=== PATIENT | male | born 1955 | race Caucasian/White ===

== ENCOUNTER 2016-10-08 14:30 | Outpatient (CLI) | payer MEDICAID | END 2016-10-08 14:31 | disposition home or self-care (01) | LOC: LAB.R 14:30 | PROVIDERS: ATTEND Nurse Practitioner Family | DX: S61.212A Laceration without foreign body of right middle finger without damage to nail, initial encounter (principal) | CPT/HCPCS: 87070; 87205 ==

== ENCOUNTER 2020-09-05 13:22 | Outpatient (CLI) | payer MEDICAID | END 2020-09-05 13:23 | disposition critical access hospital (66) | LOC: EMS 13:22 | DX: R10.9 Unspecified abdominal pain (principal) | CPT/HCPCS: A0425; A0427; A0999 ==

== ENCOUNTER 2020-09-05 14:04 | Emergency (ER) | payer MEDICAID ==
--- NOTE | 2020-09-05 14:22 | ED Physician Documentation ---
PD HPI ABD PAIN - Stated complaint Stated Complaint: ABD PX - Chief complaint Chief Complaint: Abd Pain - History obtained from History obtained from: Patient - Additional information Additional information: Previously healthy 64-year-old gentleman presents with about 4 days of abdominal pain. It has been especially bad at night, periumbilical and now left-sided. When it is particularly bad he cannot get comfortable. He has chronic diarrhea, but this is not changed recently. He has never had a colonoscopy. He has a history of schizophrenia and nurses notes suggest methamphetamine use as well. He does seem to have some fixed delusions. He states for many years people have been irradiating him and he wonders if this might be relevant to his abdominal pain. He does have a known umbilical hernia, no changes there. No history of abdominal surgeries. He declined pain medication on initial evaluation. Review of Systems Ten Systems: 10 systems reviewed and negative Constitutional: denies: Fever, Chills Ears: reports: Reviewed and negative Nose: reports: Reviewed and negative Throat: reports: Reviewed and negative Cardiac: reports: Reviewed and negative PD PAST MEDICAL HISTORY - Past Medical History Psych: Depression, Bipolar disorder - Past Surgical History Past Surgical History: No - Present Medications Home Medications: Ambulatory Orders Medication Instructions Recorded Confirmed HYDROcod/ACETAM 5/325 [Vicodin 1 - 2 ea PO Q6H PRN #15 tablet 10/10/12 5/325] Sulfamethoxazole/Trimethoprim 1 each PO BID #14 tablet 10/10/12 [Sulfamethoxazole-Tmp Ds Tablet] HYDROmorphone [Dilaudid] 1 - 2 tab PO Q4H PRN #30 tablet 09/05/20 - Allergies Allergies/Adverse Reactions: Allergies Allergy/AdvReac Type Severity Reaction Status Date / Time No Known Drug Allergies Allergy Verified 09/05/20 14:15 - Social History Does the pt smoke?: No Smoking Status: Never smoker Does the pt drink ETOH?: No Does the pt have substance abuse?: No - Immunizations Immunizations are current?: No Immunizations: TDAP >10years/unknown - POLST Patient has POLST: No PD ED PE NORMAL - Vitals Vital signs reviewed: Yes - General General: Alert and oriented X 3, No acute distress, Other (Slightly odd affect and some fixed delusions, in no distress though.) - HEENT HEENT: PERRL, EOMI - Neck Neck: Supple, no meningeal sign, No bony TTP - Cardiac Cardiac: RRR, No murmur - Respiratory Respiratory: No respiratory distress, Clear bilaterally - Abdomen Abdomen: Normal bowel sounds, Soft, Non tender, Other (Nontender easily reducible moderate sized umbilical hernia, otherwise no abdominal tenderness.) - Derm Derm: Normal color, Warm and dry, Other (Infected sebaceous cyst on back) - Extremities Extremities: No edema, No calf tenderness / cord - Neuro Neuro: Alert and oriented X 3, Normal speech Results - Vitals Vitals: Vital Signs - 24 hr 09/05/20 09/05/20 09/05/20 14:12 14:30 17:36 Temperature 36.0 C L 36.5 C Heart Rate 88 88 88 Respiratory 16 16 16 Rate Blood Pressure 129/85 H 139/92 H 128/88 H O2 Saturation 99 99 100 Oxygen O2 Source Room air - Labs Labs: Laboratory Tests 09/05/20 09/05/20 09/05/20 14:35 15:39 15:39 WBC 11.3 H RBC 3.96 L Hgb 10.9 L Hct 33.5 L MCV 84.6 MCH 27.5 MCHC 32.5 RDW 16.3 H Plt Count 341 MPV 10.1 Neut # (Auto) 9.2 H Lymph # (Auto) 1.1 L [place] # (Auto) 0.7 Eos # (Auto) 0.2 Baso # (Auto) 0.0 Absolute Nucleated RBC 0.00 Nucleated RBC % 0.0 Sodium 138 Potassium 4.1 Chloride 104 Carbon Dioxide 26 Anion Gap 8.0 BUN 18 Creatinine 1.0 Estimated GFR (MDRD) 75 L Glucose 104 H Calcium 8.6 Total Bilirubin 0.7 AST 18 ALT 19 Alkaline Phosphatase 90 Total Protein 6.6 L Albumin 3.5 Globulin 3.1 Albumin/Globulin Ratio 1.1 Lipase 22 Urine Color YELLOW Urine Clarity CLEAR Urine pH 5.5 Ur Specific [place] 1.025 Urine Protein NEGATIVE Urine Glucose (UA) NEGATIVE Urine Ketones NEGATIVE Urine Occult Blood SMALL H Urine Nitrite NEGATIVE Urine Bilirubin NEGATIVE Urine Urobilinogen 0.2 (NORMAL) Ur Leukocyte Esterase NEGATIVE Urine RBC 0-5 Urine WBC 0-3 Ur Squamous Epith Cells FEW Squamous Urine Bacteria Few Urine Casts 3-5 Fine Granular Urine Mucus Few Strands Ur Microscopic Review INDICATED Urine Culture Comments NOT INDICATED Urine Opiates Screen NEGATIVE Ur Oxycodone Screen NEGATIVE Urine Methadone Screen NEGATIVE Ur Propoxyphene Screen NEGATIVE Ur Barbiturates Screen NEGATIVE Ur Tricyclics Screen NEGATIVE Ur Phencyclidine Scrn NEGATIVE Ur Amphetamine Screen POSITIVE H U Methamphetamines Scrn POSITIVE H U Benzodiazepines Scrn NEGATIVE Urine Cocaine Screen NEGATIVE U Cannabinoids Screen NEGATIVE - Rads (name of study) L wrist/hand XR Radiology: EMP read contemporaneously (fracture of undetermined carpal) Procedures - Splint (location) L wrist Splint applied by: Physician Type of splint: Fiberglass, Short arm Other: Patient tolerated well, No complications, Neurovascular intact PD MEDICAL DECISION MAKING - ED course ED course: 64-year-old gentleman presents with 3 to 4 days of abdominal pain, pattern most consistent with renal colic but differential diagnosis is large and given his age and necessitate CT scanning. He declines pain medication on initial evaluation. 64-year-old gentleman presents with several days worth of acute and significant abdominal pain but has a very benign examination. CT demonstrates CT imaging interpreted contemporaneously by me is suggestive of a mesenteric carcinoid. The case was discussed by phone with our on-call surgeon, Dr. Evans who does not feel any specific urgent management is needed simply pain control and referral to oncology. Diagnoses: 1. Abdominal pain 2. Mesenteric carcinoid I am prescribing a short course of short-acting opioid pain medication for this patient. I have reviewed the patients LAPPER and no concerning findings were noted. I have discussed that the opioids are for short term therapy only, and will not be refilled from the ED. Departure - Departure Disposition: 01 Home, Self Care Condition: Good Record reviewed to determine appropriate education?: Yes Instructions: ED Tumor [facility] Follow-Up: Sherlyn Mendes MD [Provider Admit Priv/Credential] - Prescriptions: HYDROmorphone [Dilaudid] 1 - 2 tab PO Q4H PRN #30 tablet PRN Reason: Pain Comments: Diagnoses: 1. Abdominal pain 2. Mesenteric carcinoid You need to follow-up with the oncologist for further evaluation and treatment. Gino 1 is listed on this form. Call her office for an appointment, next available. Return for new or worsening symptoms. I am prescribing a short course of narcotic pain medication for you. These are potentially dangerous and addictive medications that should be used carefully. These medications may constipate you. Take an [id number] stool softener (docusate) twice daily with plenty of water while taking these medications. If you go 24 hours without a bowel movement, take zzdh-cum-cmjhcif miralax, per package instructions. Do not drink or drive while taking these medications. If you received narcotic or sedating medications while in the emergency department, do not drive for 24 hours. Store this medication in a safe, secure place and out of reach of children. It is a violation of federal law to give or sell this medication to another person or to use in a manner other than prescribed. The ED will not refill narcotic prescriptions, including prescriptions lost or stolen. To dispose of unwanted medications: 1. [facility] at [address] in [place] has a medication drop box. They accept prescription medications (in pill form) Saturday through Saturday 9:00 a.m. to 5:00 p.m. 2. The [facility] [employer] accepts prescription medications (in pill form only) for disposal year round. Call for more information. 3. Contact the [facility] for the next [facility] sponsored prescription drug collection event. , [phone], or [phone]; Note that many narcotic pain relievers also contain Tylenol/acetaminophen. Please ensure that your total dose of acetaminophen from all sources does not exceed 3 g (3000 mg) per day. Discharge Date/Time: 09/05/20 17:36
[2020-09-05 14:42] LABS: MUDS CUTOFF CONCENTRATIONS CUTOFF CONC BELOW:
[2020-09-05 14:46] LABS: BILIRUBIN,URINE NEGATIVE (NEGATIVE); GLUCOSE, URINE (UA) NEGATIVE (NEGATIVE); KETONES,URINE (UA) NEGATIVE (NEGATIVE); LEUKOCYTE ESTERASE, URINE NEGATIVE (NEGATIVE); NITRITE,URINE NEGATIVE (NEGATIVE); OCCULT BLOOD,URINE SMALL (NEGATIVE); PH,URINE 5.5 PH (5.0-7.5); PROTEIN,URINE NEGATIVE (NEGATIVE); UROBILINOGEN,URINE 0.2 (NORMAL) E.U./dL (NORMAL)
[2020-09-05] MEDS ORDERED: HYDROmorphone 1 MG/ML CARPUJECT IVP STA ×2 (14:49→16:50)
[2020-09-05 15:00] LABS: CLARITY,URINE CLEAR (CLEAR)
[2020-09-05 15:01] LABS: BACTERIA,URINE Few /HPF (None Seen); MUCUS,URINE Few Strands; RBC,URINE 0-5 /HPF (0-5); SQUAMOUS EPITHELIAL CELL,UR FEW Squamous (<= Few); WBC,URINE 0-3 /HPF (0-3)
[2020-09-05 15:02] LABS: CASTS, URINE 3-5 Fine Granular /LPF; COCAINE SCREEN URINE NEGATIVE (NEGATIVE); THC CANNABINOID SCREEN, URINE NEGATIVE (NEGATIVE)
[2020-09-05 15:03] LABS: AMPHETAMINE SCREEN,URINE POSITIVE (NEGATIVE); BARBITURATE SCREEN,UR NEGATIVE (NEGATIVE); BENZODIAZEPINES SCREEN, URINE NEGATIVE (NEGATIVE); METHADONE SCREEN, URINE NEGATIVE (NEGATIVE); METHAMPHETAMINES SCREEN, URINE POSITIVE (NEGATIVE); OPIATE SCREEN, URINE NEGATIVE (NEGATIVE); OXYCODONE SCREEN, URINE NEGATIVE (NEGATIVE); PROPOXYPHENE SCREEN, URINE NEGATIVE (NEGATIVE); TRICYCLIC ANTIDEPRESSANT,URINE NEGATIVE (NEGATIVE)
[2020-09-05 15:44] LABS: BASOPHILS % (AUTO) 0.4 %; EOSINOPHILS # (AUTO) 0.2 10^3/uL (0.0-0.7); EOSINOPHILS % (AUTO) 1.4 %; HCT - HEMATOCRIT 33.5 % (42.0-52.0); HGB - HEMOGLOBIN 10.9 g/dL (14.0-18.0); LYMPHOCYTES # (AUTO) 1.1 10^3/uL (1.5-3.5); MEAN CORPUSCULAR HEMOGLOBIN 27.5 pg (27.0-31.0); MEAN CORPUSCULAR HGB CONC 32.5 g/dL (32.0-36.0); MEAN CORPUSCULAR VOLUME 84.6 fL (80.0-94.0); MEAN PLATELET VOLUME 10.1 fL (7.4-11.4); MONOCYTES # (AUTO) 0.7 10^3/uL (0.0-1.0); MONOCYTES % (AUTO) 6.3 %; NEUTROPHILS # (AUTO) 9.2 10^3/uL (1.5-6.6); NEUTROPHILS % (AUTO) 81.5 %; PLT - PLATELET COUNT 341 10^3/uL (130-450); RED BLOOD COUNT 3.96 10^6/uL (4.70-6.10); RED CELL DISTRIBUTION WIDTH 16.3 % (12.0-15.0); WHITE BLOOD COUNT 11.3 x10^3/uL (4.8-10.8)
[2020-09-05 16:00] LABS: ALBUMIN 3.5 g/dL (3.2-5.5); ALBUMIN/GLOBULIN RATIO 1.1 (1.0-2.2); BILIRUBIN,TOTAL 0.7 mg/dL (0.2-1.0); CALCIUM 8.6 mg/dL (8.5-10.3); POTASSIUM 4.1 mmol/L (3.5-5.0); TOTAL PROTEIN 6.6 g/dL (6.7-8.2)
[2020-09-05] MEDS ORDERED: IOVERSOL 320 100 ML VIAL IVP ONE ×2 (16:21→16:48)
--- NOTE | 2020-09-05 17:00 | CT Report ---
PROCEDURE: Abdomen/Pelvis W INDICATIONS: IV only, abd pain CONTRAST: IV CONTRAST: Optiray 320 ml: 100 PO CONTRAST: *NO PO CONTRAST TECHNIQUE: After the administration of IV contrast, 5 mm thick sections acquired from the diaphragms to the symp hysis. 5 mm thick coronal and sagittal reformats were acquired. For radiation dose reduction, the f ollowing was used: automated exposure control, adjustment of mA and/or kV according to patient size. COMPARISON: None. FINDINGS: Image quality: Excellent. ABDOMEN: Lung bases: Lung bases are clear. Heart size is normal. Solid organs: Liver and spleen are normal in size and enhancement. Gallbladder wall does not appear thickened. Biliary system is non dilated. Pancreas enhances normally. No adrenal nodules. Kidn eys demonstrate normal size and enhancement, without hydronephrosis. Peritoneum and bowel: Within the right aspect of the mesentery, there is a spiculated mass with surr ounding desmoplastic reaction, with associated "drawing in" of the adjacent loops of small bowel. The mass itself measures up to 2.2 centimeters in greatest axial dimension and measures up to 3.4 cm crankshaft straightener niocaudal and demonstrates central calcification. Bowel loops demonstrate normal wall thickness and caliber. No free fluid or air. Nodes and vessels: No retroperitoneal or mesenteric adenopathy by size criteria. Aorta and inferior vena cava are normal in size. Miscellaneous: A mild fat-containing periumbilical hernia is seen. PELVIS: Genitourinary: Bladder wall thickness is normal. Miscellaneous: A fat-containing left inguinal hernia is seen. No enlarged inguinal or pelvic lymph n odes are seen. Bones: No suspicious bony lesions. No vertebral body compression fractures. Degenerative changes a re seen throughout, which are worst involving the L5-S1 level. IMPRESSION: These imaging findings are most compatible with a mesenteric carcinoid. Please correlate with laboratory values. Incidental note is made of: Fat-containing periumbilical hernia Fat-containing left inguinal hernia Focal L5-S1 degenerative change Reviewed by: Joesph Puckett MD on 09/05/2020 3:59 PM AKANNA Approved by: Joesph Puckett MD on 09/05/2020 3:59 PM AKDT Station ID: [id number]
[2020-09-05 17:37] VITALS: BP 128/88
--- NOTE | 2020-09-11 13:53 | ED Physician Documentation ---
ED Addendum - Addendum Addendum: 09/11/20 13:52 Took call from EMS, they are out at his house. There is no increase in abdominal pain but the patient had just run out of his Dilaudid and is worried that he will have an increase in abdominal pain. They wondered if we could simply refill the medication. Given the new diagnosis of cancer this seems not unreasonable. He does have follow-up this week with Dr. Keith. I electronically sent a refill for the same prescription, Dilaudid 2 to 4 mg every 4 hours as needed for pain #30 to [facility] in [place].
== END 2020-09-05 17:36 | disposition home or self-care (01) ==
LOC: EDUNIT# → EDBD → ED 14:04
DX: K52.9 Noninfective gastroenteritis and colitis, unspecified (principal); K42.9 Umbilical hernia without obstruction or gangrene; C7A.019 Malignant carcinoid tumor of the small intestine, unspecified portion
CPT/HCPCS: 36415; 74177; 80053; 80306; 81001; 83690; 85025; 96374; 96376; 99283; 99284; J1170; Q9967; 29125; 81003; 87086

== ENCOUNTER 2020-09-08 09:33 | Outpatient (CLI) | payer MEDICAID | END 2020-09-08 09:34 | disposition EMS.NT | LOC: EMS 09:33 | DX: Z03.89 Encounter for observation for other suspected diseases and conditions ruled out (principal) ==

== ENCOUNTER 2020-09-16 17:21 | Outpatient (CLI) | payer MEDICAID | END 2020-09-16 17:22 | disposition critical access hospital (66) | LOC: EMS 17:21 | DX: R10.9 Unspecified abdominal pain (principal); R07.89 Other chest pain | CPT/HCPCS: A0425; A0427 ==

== ENCOUNTER 2020-09-16 18:09 | Emergency (ER) | payer MEDICAID ==
[2020-09-16] MEDS ORDERED: HYOSCYAMINE SL 0.125 MG TABLET SL STA (18:35)
--- NOTE | 2020-09-16 18:38 | ED Physician Documentation ---
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 This is since resolved. He states he currently has no complaints and would like to go home. No vomiting. No diarrhea. No constipation. Saw his PCP this morning. No fever. No chills. Pain was generalized, cramping, nonradiating. He is awaiting referral to oncology for further care of his carcinoid tumor Review of Systems Ten Systems: 10 systems reviewed and negative Constitutional: denies: Fever, Chills Cardiac: denies: Chest pain / pressure Respiratory: denies: Cough GI: denies: Nausea, Vomiting, Diarrhea, Hematemesis, Bloody / black stool PD PAST MEDICAL HISTORY - Past Medical History Past Medical History: Yes Psych: Depression, Bipolar disorder - Past Surgical History Past Surgical History: No - Present Medications Home Medications: Ambulatory Orders Medication Instructions Recorded Confirmed HYDROcod/ACETAM 5/325 [Vicodin 1 - 2 ea PO Q6H PRN #15 tablet 10/10/12 09/16/20 5/325] Hyoscyamine Sulfate [Levsin-Sl] 0.125 mg SL Q6H PRN #30 tab 09/16/20 - Allergies Allergies/Adverse Reactions: Allergies Allergy/AdvReac Type Severity Reaction Status Date / Time No Known Drug Allergies Allergy Verified 09/16/20 18:19 - Social History Does the pt smoke?: No Smoking Status: Never smoker Does the pt drink ETOH?: No Does the pt have substance abuse?: No - Immunizations Immunizations are current?: No Immunizations: TDAP >10years/unknown - POLST Patient has POLST: No PD ED PE NORMAL - Vitals Vital signs reviewed: Yes - General General: Alert and oriented X 3, No acute distress, Well developed/nourished - HEENT HEENT: PERRL, Moist mucous membranes - Neck Neck: Supple, no meningeal sign - Cardiac Cardiac: RRR, Strong equal pulses - Respiratory Respiratory: No respiratory distress, Clear bilaterally - Abdomen Abdomen: Soft, Non tender, Non distended - Back Back: No CVA TTP, No spinal TTP - Derm Derm: Warm and dry - Extremities Extremities: No edema - Neuro Neuro: Alert and oriented X 3 - Psych Psych: Normal mood, Normal affect Results - Vitals Vitals: Vital Signs - 24 hr 09/16/20 09/16/20 18:13 18:58 Temperature 36.4 C L Heart Rate 87 83 Respiratory 16 16 Rate Blood Pressure 143/92 H 154/93 H O2 Saturation 93 98 Oxygen O2 Source Room air PD MEDICAL DECISION MAKING - ED course Complexity details: reviewed results, re-evaluated patient, considered differential, d/w patient ED course: Patient is asymptomatic here. He request to go home at this time. We will trial him on Levsin as well for abdominal cramping. We will have him follow-up with his doctor for further care. Patient declines any other work-up at this time. Patient counseled regarding signs and symptoms for which I believe and urgent re-evaluation would be necessary. Patient with good understanding of and agreement to plan and is comfortable going home at this time This document was made in part using voice recognition software. While efforts are made to proofread this document, sound alike and grammatical errors may occur. Departure - Departure Disposition: Home, Self Care Clinical Impression: Abdominal pain Qualifiers: Abdominal location: generalized Qualified Code(s): R10.84 - Generalized abdominal pain Carcinoid tumor Qualifiers: Carcinoid tumor malignancy status: unspecified whether malignant Carcinoid tumor location: unspecified site Qualified Code(s): D3A.00 - Benign carcinoid tumor of unspecified site Condition: Good Instructions: ED Abdominal Pain Unkn Cause Follow-Up: Vic Keith MD [Credentialed Staff Provider] - Within 1 week Prescriptions: Hyoscyamine Sulfate [Levsin-Sl] 0.125 mg SL Q6H PRN #30 tab PRN Reason: Abdominal Pain Comments: You can use the Levsin in addition to the Dilaudid. The Dilaudid will take about 30 to 45 minutes to take effect. Follow-up with your doctor for further care. Discharge Date/Time: 09/16/20 19:00
[2020-09-16 18:58] VITALS: BP 154/93
== END 2020-09-16 19:00 | disposition home or self-care (01) ==
LOC: EDUNIT# → ED 18:09
DX: D3A.00 Benign carcinoid tumor of unspecified site (principal); R10.84 Generalized abdominal pain
CPT/HCPCS: 99283; 99284; A9270

== ENCOUNTER 2020-09-24 13:41 | Outpatient (CLI) | payer MEDICAID | END 2020-09-24 13:42 | disposition home or self-care (01) | LOC: LAB.S 13:41 | PROVIDERS: ATTEND Internal Medicine | DX: D3A.00 Benign carcinoid tumor of unspecified site (principal) | CPT/HCPCS: 36415; 81599; 86316 ==

== ENCOUNTER 2020-09-29 09:45 | Outpatient (CLI) | payer MEDICAID | END 2020-09-29 23:59 | disposition home or self-care (01) | LOC: LAB.R 09:45 | PROVIDERS: ATTEND Internal Medicine | DX: D3A.00 Benign carcinoid tumor of unspecified site (principal) | CPT/HCPCS: 81599; 83497 ==

== ENCOUNTER 2021-01-24 19:15 | Outpatient (CLI) | payer MEDICARE, MEDICAID | END 2021-01-24 19:16 | disposition critical access hospital (66) | LOC: EMS 19:15 | DX: R10.9 Unspecified abdominal pain (principal); R19.7 Diarrhea, unspecified | CPT/HCPCS: A0425; A0429 ==

== ENCOUNTER 2021-01-24 20:24 | Emergency (ER) | payer MEDICARE, MEDICAID ==
--- NOTE | 2021-01-24 20:48 | ED Physician Documentation ---
PD HPI ABD PAIN - Stated complaint Stated Complaint: ABD PX - Chief complaint Chief Complaint: Abd Pain - History obtained from History obtained from: Patient - History of Present Illness Timing - onset: How many weeks ago (2) Timing - duration: Weeks (2) Timing - details: Intermittant Quality: Cramping, Aching, Pain Location: All over / everywhere, Periumbilical Radiation: No: Chest, Lower back, Left flank, Right flank Improved by: Laying still. No: Eating Worsened by: Moving. No: Eating, Breathing Associated symptoms: Nausea, Diarrhea (claims loose stool without watery for the past few years. No melena nor blood.), Other (The patient states he does feel the pain episodes are being caused by outside forces and unknown people eliciting or provoking the pain in him.). No: Fever, Vomiting, Constipation, Melena, Hematochezia Similar symptoms before: No diagnosis (He had similar episodes frequently around the summertime and was seen in the ER twice and called the ambulance several times for similar episodes. CT scan showed a carcinoid tumor. He has not had follow-up with his primary as his pains improved for several months until 2 weeks ago.) Recently seen: Not recently seen (seen in ER twice in September. Saw PMD in follow up then but did not follow through with Oncology referral as pains improved.) Review of Systems Constitutional: denies: Fever, Chills Nose: denies: Rhinorrhea / runny nose, Congestion Throat: denies: Sore throat Cardiac: denies: Chest pain / pressure Respiratory: denies: Dyspnea, Cough GI: reports: Abdominal Pain, Nausea, Diarrhea. denies: Vomiting, Constipation, Hematemesis, Bloody / black stool : denies: Dysuria, Frequency PD PAST MEDICAL HISTORY - Past Medical History Cardiovascular: None Respiratory: None Neuro: None Endocrine/Autoimmune: None GI: None : None HEENT: None Psych: Depression, Bipolar disorder Musculoskeletal: Osteoarthritis Derm: None - Past Surgical History Past Surgical History: No General: Other - Present Medications Home Medications: Ambulatory Orders Medication Instructions Recorded Confirmed HYDROcod/ACETAM 5/325 [Vicodin 1 - 2 ea PO Q6H PRN #15 tablet 10/10/12 09/16/20 5/325] Hyoscyamine Sulfate [Levsin-Sl] 0.125 mg SL Q6H PRN #30 tab 09/16/20 Hyoscyamine [Levsin] 0.125 mg SL Q6H PRN #20 tablet 01/24/21 Naproxen 250 mg PO BID 7 Days #30 tablet 01/24/21 - Allergies Allergies/Adverse Reactions: Allergies Allergy/AdvReac Type Severity Reaction Status Date / Time No Known Drug Allergies Allergy Verified 01/24/21 20:26 - Social History Does the pt smoke?: No Smoking Status: Never smoker Does the pt drink ETOH?: No Does the pt have substance abuse?: No - Immunizations Immunizations are current?: No Immunizations: TDAP >10years/unknown - POLST Patient has POLST: No PD ED PE NORMAL - Vitals Vital signs reviewed: Yes - General General: Alert and oriented X 3, No acute distress, Well developed/nourished - HEENT HEENT: Pharynx benign - Neck Neck: Supple, no meningeal sign, No adenopathy - Cardiac Cardiac: RRR (regular but tachycardic.), No murmur - Respiratory Respiratory: Clear bilaterally - Abdomen Abdomen: Normal bowel sounds, Soft, Non tender, Non distended, No organomegaly, Other (umbilical area is soft and not tender. ) - Back Back: No CVA TTP - Derm Derm: Normal color, Warm and dry - Extremities Extremities: No edema, No calf tenderness / cord - Neuro Neuro: Alert and oriented X 3, No motor deficit, Normal speech Results - Vitals Vitals: Vital Signs - 24 hr 01/24/21 01/24/21 01/24/21 20:27 20:29 20:57 Temperature 36.5 C Heart Rate 118 H 119 H 105 H Respiratory 18 14 12 Rate Blood Pressure 113/80 107/70 125/84 H O2 Saturation 96 98 97 Oxygen O2 Source Room air - Labs Labs: Laboratory Tests 01/24/21 01/24/21 01/24/21 20:56 20:56 20:56 WBC 12.7 H RBC 4.33 L Hgb 11.8 L Hct 36.2 L MCV 83.6 MCH 27.3 MCHC 32.6 RDW 15.6 H Plt Count 429 MPV 9.6 Neut # (Auto) 10.7 H Lymph # (Auto) 1.1 L [place] # (Auto) 0.7 Eos # (Auto) 0.1 Baso # (Auto) 0.1 Absolute Nucleated RBC 0.00 Nucleated RBC % 0.0 Sodium 137 Potassium 3.8 Chloride 101 Carbon Dioxide 25 Anion Gap 11.0 BUN 16 Creatinine 1.0 Estimated GFR (MDRD) 75 L Glucose 154 H Calcium 9.1 Total Bilirubin 0.3 AST 28 ALT 33 Alkaline Phosphatase 124 H Total Protein 6.9 Albumin 3.3 Globulin 3.6 Albumin/Globulin Ratio 0.9 L Lipase 26 TSH 3.61 PD MEDICAL DECISION MAKING - ED course Complexity details: re-evaluated patient (The patient change his mind and declined any lab testing or imaging at this time. He follow-up outpatient. He does state prior prescriptions for pain meds and Levsin were helpful back in September. I can represcribe those.), considered differential (He is symptom-free at the moment. Considerations could be intermittent obstruction of his hernia but it soft at the moment. His intestinal tumor may be having changes. Repeat CT scan and lab testing would be appropriate.), d/w patient ED course: The patient does describe intermittent abdominal pains that may be intestinal spasms. Other considerations could be intermittent incarceration of his hernia which is soft and not tender at the moment. He had a previous carcinoid tumor found on CT scan in September that has not had follow-up. He saw his PMD but did not follow-up with the oncology referrals and had declined repeat imaging. The pain resumed intermittently the last 2 weeks. I offered doing a repeat CT scan to look for interval change here today. Initially said yes but then changed his mind it would rather be discharged. He does state pain meds and the Levsin had helped in September. I told him I would prescribe him some naproxen and Levsin to try for the episodes. I asked that he pay attention during the episodes to feel as bellybutton area and see if there is tenderness or firmness in the area that might suggest incarceration of his hernia. There is a paranoid delusional overlay to his thought process as he does feel there is external forces in people that are causing the pain episodes intermittently in order to "punish him". He would not elaborate further on this. He is aware that this sounds strange any says so all right but he still has that feeling. I believe he still has an organic cause for his pains though. Departure - Departure Disposition: 01 Home, Self Care Clinical Impression: Abdominal pain Qualifiers: Abdominal location: generalized Qualified Code(s): R10.84 - Generalized abdominal pain Condition: Stable Record reviewed to determine appropriate education?: Yes Instructions: ED Abdominal Pain Unkn Cause Male Follow-Up: Vic Keith MD [Primary Care Provider] - Prescriptions: Hyoscyamine [Levsin] 0.125 mg SL Q6H PRN #20 tablet PRN Reason: Abdominal Pain Naproxen 250 mg PO BID 7 Days #30 tablet Comments: Stay well-hydrated. I would suggest some anti-inflammatory such as naproxen twice daily for the next 10 to 14 days presuming some inflammation related to the intestinal tumor. Take it with food. Frequent fluids and regular diet for hydration and nutrition. Add hyoscyamine every 6 hours if needed for the abdominal pain episodes as this may be intestinal spasms occurring. When you get a pain episode, make note of your bellybutton area and see if the hernia is present and firm or hard with consideration of intermittent incarceration of the hernia as a cause of the pain. You really should follow-up with your primary care and referral to oncology for further evaluation of the previously diagnosed intestinal tumor from September. Call for an appointment. Return to the ER as needed. I transmitted the prescriptions to [facility] in [place]. Discharge Date/Time: 01/24/21 21:22
[2021-01-24] MEDS: SODIUM CHLORIDE 0.9% 1,000 ML IV STA (20:54)
[2021-01-24] MEDS ORDERED: IOVERSOL 320 100 ML VIAL IVP ONE (20:57)
[2021-01-24 20:58] VITALS: BP 125/84
[2021-01-24 21:02] LABS: BASOPHILS # (AUTO) 0.1 10^3/uL (0.0-0.1); BASOPHILS % (AUTO) 0.4 %; EOSINOPHILS # (AUTO) 0.1 10^3/uL (0.0-0.7); EOSINOPHILS % (AUTO) 1.1 %; HCT - HEMATOCRIT 36.2 % (42.0-52.0); HGB - HEMOGLOBIN 11.8 g/dL (14.0-18.0); LYMPHOCYTES # (AUTO) 1.1 10^3/uL (1.5-3.5); LYMPHOCYTES % (AUTO) 8.6 %; MEAN CORPUSCULAR HEMOGLOBIN 27.3 pg (27.0-31.0); MEAN CORPUSCULAR HGB CONC 32.6 g/dL (32.0-36.0); MEAN CORPUSCULAR VOLUME 83.6 fL (80.0-94.0); MEAN PLATELET VOLUME 9.6 fL (7.4-11.4); MONOCYTES # (AUTO) 0.7 10^3/uL (0.0-1.0); MONOCYTES % (AUTO) 5.6 %; NEUTROPHILS # (AUTO) 10.7 10^3/uL (1.5-6.6); NEUTROPHILS % (AUTO) 83.8 %; PLT - PLATELET COUNT 429 10^3/uL (130-450); RED BLOOD COUNT 4.33 10^6/uL (4.70-6.10); RED CELL DISTRIBUTION WIDTH 15.6 % (12.0-15.0); WHITE BLOOD COUNT 12.7 x10^3/uL (4.8-10.8)
[2021-01-24 21:45] LABS: ALBUMIN 3.3 g/dL (3.2-5.5); ALBUMIN/GLOBULIN RATIO 0.9 (1.0-2.2); BILIRUBIN,TOTAL 0.3 mg/dL (0.2-1.0); CALCIUM 9.1 mg/dL (8.5-10.3); POTASSIUM 3.8 mmol/L (3.5-5.0); TOTAL PROTEIN 6.9 g/dL (6.7-8.2)
== END 2021-01-24 21:22 | disposition home or self-care (01) ==
LOC: ED 20:24
DX: K46.9 Unspecified abdominal hernia without obstruction or gangrene (principal); R10.84 Generalized abdominal pain
CPT/HCPCS: 36415; 80053; 83690; 84443; 85025; 99283

== ENCOUNTER 2021-03-20 20:28 | Emergency (ER) | payer MEDICARE, MEDICAID ==
[2021-03-20 23:11] VITALS: BP 111/79
--- NOTE | 2021-03-20 23:57 | ED Physician Documentation ---
PD HPI HEENT - Stated complaint Stated Complaint: LT NECK PX - Chief complaint Chief Complaint: Heent - History obtained from History obtained from: Patient - Additional information Additional information: The patient comes to the emergency department chief complaint of left neck mass and pain for the last 7 days. The patient states that the mass seems to have gone down a little in size, and denies any impingement on his airway or difficulty swallowing. No dizziness or neurologic symptoms. The patient is currently being seen by oncology for work-up for possible small intestinal cancer. He actually has an appointment for a PET scan next week for this very reason. He has seen his oncologist since the onset of the neck swelling/mass, but nothing was felt to be needed to be done at that point in time, other than to further evaluate for cancer with the PET scan. The patient denies any fevers or chills. No drainage from the mass. No other complaints at this time. Review of Systems Ten Systems: 10 systems reviewed and negative Constitutional: reports: Reviewed and negative Eyes: reports: Reviewed and negative Ears: reports: Reviewed and negative Nose: reports: Reviewed and negative Throat: reports: Reviewed and negative Cardiac: reports: Reviewed and negative Respiratory: reports: Reviewed and negative GI: reports: Reviewed and negative : reports: Reviewed and negative Skin: reports: Reviewed and negative Musculoskeletal: reports: Reviewed and negative Neurologic: reports: Other (Neck mass) Psychiatric: reports: Reviewed and negative Endocrine: reports: Reviewed and negative Immunocompromised: reports: Reviewed and negative PD PAST MEDICAL HISTORY - Past Medical History Cardiovascular: None Respiratory: None Neuro: None Endocrine/Autoimmune: None GI: None : None HEENT: None Psych: Depression, Bipolar disorder Musculoskeletal: Osteoarthritis Derm: None - Past Surgical History Past Surgical History: No General: Other - Present Medications Home Medications: Ambulatory Orders Medication Instructions Recorded Confirmed HYDROcod/ACETAM 5/325 [Vicodin 1 - 2 ea PO Q6H PRN #15 tablet 10/10/12 03/06/21 5/325] Hyoscyamine Sulfate [Levsin-Sl] 0.125 mg SL Q6H PRN #30 tab 09/16/20 03/06/21 Hyoscyamine [Levsin] 0.125 mg SL Q6H PRN #20 tablet 01/24/21 03/06/21 Naproxen 250 mg PO BID 7 Days #30 tablet 01/24/21 03/06/21 - Allergies Allergies/Adverse Reactions: Allergies Allergy/AdvReac Type Severity Reaction Status Date / Time No Known Drug Allergies Allergy Verified 03/20/21 20:41 - Social History Does the pt smoke?: No Smoking Status: Current every day smoker Does the pt drink ETOH?: No Does the pt have substance abuse?: No - Immunizations Immunizations are current?: No Immunizations: TDAP >10years/unknown - POLST Patient has POLST: No PD ED PE NORMAL - Vitals Vital signs reviewed: Yes - General General: Alert and oriented X 3, No acute distress, Well developed/nourished - HEENT HEENT: Atraumatic, PERRL, EOMI, Moist mucous membranes - Neck Neck: Supple, no meningeal sign, No bony TTP, Other (Large, at least 8 to 10 cm diameter mass protruding from the base of patient's left neck. Trachea is midline. Voice normal. No erythema or fluctuance. Mass is firm and of consistent palpable density throughout.) - Respiratory Respiratory: No respiratory distress - Derm Derm: Normal color, Warm and dry, No rash - Extremities Extremities: No deformity, No edema - Neuro Neuro: Alert and oriented X 3 - Psych Psych: Normal mood, Normal affect Results - Vitals Vitals: Vital Signs - 24 hr 03/20/21 03/20/21 03/20/21 20:33 20:41 23:09 Temperature 36.4 C L 36.5 C 36.5 C Heart Rate 127 H 127 H 115 H Respiratory 16 16 16 Rate Blood Pressure 124/80 124/80 111/79 O2 Saturation 97 97 97 Oxygen O2 Source Room air PD MEDICAL DECISION MAKING - ED course Complexity details: considered differential, d/w patient ED course: I discussed with the patient that his findings are very concerning for malignancy, based on the firm, immobile nature of the mass. I have discussed with the patient that we can certainly do a CT scan here this may lead to biopsy by the oncologist; however, the patient also may have the mass imaged as part of his PET scan next week, as there is unlikely any emergent or even urgent in tervention that will be done for the mass alone. I discussed with the patient that the mass does have the potential to grow larger and potentially, invade surrounding structures, such as the carotid artery. The mass could also cause impingement on the patient's airway which is also concerning. However, as none of that is occurring now, and the patient is in the midst of a larger cancer work-up with oncology, there is no emergent management to be done at this time. The patient would like to forego imaging in the emergency department and instead, wait until his PET scan next week. We have discussed the usual indications for return. Departure - Departure Disposition: 01 Home, Self Care Clinical Impression: Mass in neck Condition: Stable Comments: The swelling in your neck is concerning for cancer, based on the firmness and solid consistency of it. Given that you are already established with oncology and have a PET scan coming up, this is at this point the best test to sort this out for you. At this point in time, there is no emergent intervention to be done, as the mass is not impinging on your airway or esophagus, and has not eroded into your carotid artery. You can discuss with your oncologist whether a biopsy is in order or whether you need radiation, chemotherapy, or surgery to shrink the tumor down. For now, you should continue your plan to follow-up for your PET scan. Please seek medical attention immediately if you feel as though your airways being closed off. Discharge Date/Time: 03/20/21 23:59
== END 2021-03-20 23:59 | disposition home or self-care (01) ==
LOC: ED 20:28
DX: R22.1 Localized swelling, mass and lump, neck (principal); F17.200 Nicotine dependence, unspecified, uncomplicated
CPT/HCPCS: 99281; 99284

== ENCOUNTER 2021-04-03 16:02 | Outpatient (CLI) | payer MEDICARE, MEDICAID | END 2021-04-03 16:03 | disposition critical access hospital (66) | LOC: EMS 16:02 | DX: R10.9 Unspecified abdominal pain (principal) | CPT/HCPCS: A0425; A0427 ==

== ENCOUNTER 2021-04-03 16:42 | Emergency (ER) | payer MEDICARE, MEDICAID ==
--- NOTE | 2021-04-03 17:15 | ED Physician Documentation ---
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 His follow-up has been delayed by access issues and probably underlying mental health issues but now has established with an oncologist. He had a PET scan last week and results are unknown. He had a lot of abdominal pain over the weekend and presents requesting pain medication. Pain is not too bad right now but definitely still there. He also requests that we draw the labs that his oncologist had ordered as an outpatient, review of the chart shows that a CBC, CMP, and chromogranin A had been ordered. Review of Systems Ten Systems: 10 systems reviewed and negative Constitutional: denies: Fever, Chills Throat: reports: Reviewed and negative Cardiac: reports: Reviewed and negative Respiratory: reports: Reviewed and negative PD PAST MEDICAL HISTORY - Past Medical History Cardiovascular: None Respiratory: None Neuro: None Endocrine/Autoimmune: None GI: None : None HEENT: None Psych: Depression, Bipolar disorder Musculoskeletal: Osteoarthritis Derm: None - Past Surgical History Past Surgical History: No General: Other - Present Medications Home Medications: Ambulatory Orders Medication Instructions Recorded Confirmed HYDROcod/ACETAM 5/325 [Vicodin 1 - 2 ea PO Q6H PRN #15 tablet 10/10/12 03/06/21 5/325] Hyoscyamine Sulfate [Levsin-Sl] 0.125 mg SL Q6H PRN #30 tab 09/16/20 03/06/21 Hyoscyamine [Levsin] 0.125 mg SL Q6H PRN #20 tablet 01/24/21 03/06/21 Naproxen 250 mg PO BID 7 Days #30 tablet 01/24/21 03/06/21 HYDROmorphone [Dilaudid] 1 - 2 tab PO Q4H PRN #30 tablet 04/03/21 - Allergies Allergies/Adverse Reactions: Allergies Allergy/AdvReac Type Severity Reaction Status Date / Time No Known Drug Allergies Allergy Verified 03/20/21 20:41 - Social History Does the pt smoke?: No Smoking Status: Current every day smoker Does the pt drink ETOH?: No Does the pt have substance abuse?: No - Immunizations Immunizations are current?: No Immunizations: TDAP >10years/unknown - POLST Patient has POLST: No PD ED PE NORMAL - Vitals Vital signs reviewed: Yes - General General: Alert and oriented X 3, No acute distress - Abdomen Abdomen: Other (Mild upper abdominal tenderness without surgical signs, normal bowel sounds, soft) - Back Back: No CVA TTP, No spinal TTP - Derm Derm: Normal color, Warm and dry - Extremities Extremities: No edema, No calf tenderness / cord - Neuro Neuro: Alert and oriented X 3, Normal speech Results - Vitals Vitals: Vital Signs - 24 hr 04/03/21 04/03/21 16:48 16:51 Temperature 36.3 C L 36.3 C L Heart Rate 107 H 107 H Respiratory 19 19 Rate Blood Pressure 124/84 H 124/84 H O2 Saturation 96 96 Oxygen O2 Source Room air PD MEDICAL DECISION MAKING - ED course ED course: 65-year-old gentleman with known intra-abdominal malignancy, 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 Given that he is a cancer patient this is not unreasonable. I did go ahead and order the labs that his oncologist had ordered. Departure - Departure Disposition: Home, Self Care Clinical Impression: Abdominal pain Qualifiers: Abdominal location: generalized Qualified Code(s): R10.84 - Generalized abdominal pain Condition: Good Record reviewed to determine appropriate education?: Yes Instructions: ED Abdominal Pain Unkn Cause Male Prescriptions: HYDROmorphone [Dilaudid] 1 - 2 tab PO Q4H PRN #30 tablet PRN Reason: Pain Comments: As requested and for your convenience I ordered a CBC, CMP, and chromogranin A lab. Since these were ordered by me and not your oncologist please call the [facility] tomorrow to let them know that these were ordered so that they can route the results to your oncologist. Return for new or worsening symptoms. I sent your prescription electronically to [email or web address] in [place] I am prescribing a short course of narcotic pain medication for you. These are potentially dangerous and addictive medications that should be used carefully. These medications may constipate you. Take an ebqa-rtx-[id number] stool softener (docusate) twice daily with plenty of water while taking these medications. If you go 24 hours without a bowel movement, take [id number] miralax, per package instructions. Do not drink or drive while taking these medications. If you received narcotic or sedating medications while in the emergency department, do not drive for 24 hours. Store this medication in a safe, secure place and out of reach of children. It is a violation of federal law to give or sell this medication to another person or to use in a manner other than prescribed. The ED will not refill narcotic prescriptions, including prescriptions lost or stolen. To dispose of unwanted medications: 1. [facility] at [address] in [place] has a medication drop box. They accept prescription medications (in pill form) Saturday through Saturday 9:00 a.m. to 5:00 p.m. 2. The [facility] [employer] [facility] accepts prescription medications (in pill form only) for disposal year round. Call for more information. 3. Contact the [facility] for the next [facility] sponsored prescription drug collection event. , [phone], or [phone]; Note that many narcotic pain relievers also contain Tylenol/acetaminophen. Please ensure that your total dose of acetaminophen from all sources does not exceed 3 g (3000 mg) per day.
[2021-04-03 17:29] LABS: BASOPHILS % (AUTO) 0.2 %; EOSINOPHILS # (AUTO) 0.1 10^3/uL (0.0-0.7); EOSINOPHILS % (AUTO) 0.4 %; HCT - HEMATOCRIT 32.9 % (42.0-52.0); HGB - HEMOGLOBIN 10.6 g/dL (14.0-18.0); LYMPHOCYTES # (AUTO) 0.9 10^3/uL (1.5-3.5); LYMPHOCYTES % (AUTO) 5.2 %; MEAN CORPUSCULAR HEMOGLOBIN 26.5 pg (27.0-31.0); MEAN CORPUSCULAR HGB CONC 32.2 g/dL (32.0-36.0); MEAN CORPUSCULAR VOLUME 82.3 fL (80.0-94.0); MEAN PLATELET VOLUME 9.7 fL (7.4-11.4); MONOCYTES # (AUTO) 1.5 10^3/uL (0.0-1.0); MONOCYTES % (AUTO) 8.4 %; NEUTROPHILS # (AUTO) 14.7 10^3/uL (1.5-6.6); NEUTROPHILS % (AUTO) 85.3 %; PLT - PLATELET COUNT 524 10^3/uL (130-450); RED CELL DISTRIBUTION WIDTH 17.7 % (12.0-15.0); WHITE BLOOD COUNT 17.3 x10^3/uL (4.8-10.8)
[2021-04-03 17:41] LABS: ALBUMIN 3.3 g/dL (3.2-5.5); ALBUMIN/GLOBULIN RATIO 0.9 (1.0-2.2); BILIRUBIN,TOTAL 0.8 mg/dL (0.2-1.0); CALCIUM 8.7 mg/dL (8.5-10.3); POTASSIUM 3.6 mmol/L (3.5-5.0); TOTAL PROTEIN 6.9 g/dL (6.7-8.2)
[2021-04-03] MEDS: HYDROmorphone 2 MG TABLET PO STA (18:17)
[2021-04-03 18:23] VITALS: BP 124/71
== END 2021-04-03 19:15 | disposition home or self-care (01) ==
LOC: EDUNIT# → ED 16:42
DX: R10.84 Generalized abdominal pain (principal); F17.200 Nicotine dependence, unspecified, uncomplicated
CPT/HCPCS: 36415; 80053; 81599; 85025; 99283; A9270

== ENCOUNTER 2021-04-06 20:09 | Outpatient (CLI) | payer MEDICARE, MEDICAID | END 2021-04-06 20:10 | disposition critical access hospital (66) | LOC: EMS 20:09 | DX: R10.11 Right upper quadrant pain (principal); R07.9 Chest pain, unspecified; R50.9 Fever, unspecified; R19.7 Diarrhea, unspecified | CPT/HCPCS: A0425; A0427 ==

== ENCOUNTER 2021-04-06 20:52 | Emergency (ER) | payer MEDICARE, MEDICAID ==
[2021-04-06] MEDS ORDERED: SODIUM CHLORIDE 0.9% 500 ML IV STA (21:02)
[2021-04-06 21:15] LABS: BASOPHILS # (AUTO) 0.1 10^3/uL (0.0-0.1); BASOPHILS % (AUTO) 0.3 %; EOSINOPHILS % (AUTO) 0.1 %; HCT - HEMATOCRIT 32.7 % (42.0-52.0); HGB - HEMOGLOBIN 10.4 g/dL (14.0-18.0); LYMPHOCYTES # (AUTO) 0.6 10^3/uL (1.5-3.5); MEAN CORPUSCULAR HEMOGLOBIN 25.9 pg (27.0-31.0); MEAN CORPUSCULAR HGB CONC 31.8 g/dL (32.0-36.0); MEAN CORPUSCULAR VOLUME 81.3 fL (80.0-94.0); MEAN PLATELET VOLUME 9.7 fL (7.4-11.4); MONOCYTES # (AUTO) 1.5 10^3/uL (0.0-1.0); MONOCYTES % (AUTO) 9.9 %; NEUTROPHILS # (AUTO) 12.7 10^3/uL (1.5-6.6); NEUTROPHILS % (AUTO) 85.3 %; PLT - PLATELET COUNT 631 10^3/uL (130-450); RED BLOOD COUNT 4.02 10^6/uL (4.70-6.10); RED CELL DISTRIBUTION WIDTH 17.2 % (12.0-15.0); WHITE BLOOD COUNT 14.9 x10^3/uL (4.8-10.8)
[2021-04-06 21:31] LABS: ALBUMIN/GLOBULIN RATIO 0.8 (1.0-2.2); BILIRUBIN,TOTAL 0.9 mg/dL (0.2-1.0); CALCIUM 8.6 mg/dL (8.5-10.3); CREATININE 1.1 mg/dL (0.6-1.2); POTASSIUM 3.8 mmol/L (3.5-5.0)
[2021-04-06] MEDS ORDERED: HYDROmorphone 1 MG/ML CARPUJECT IVP STA ×2 (22:07→23:03)
[2021-04-06] MEDS ORDERED: IOVERSOL 320 100 ML VIAL IVP ONE (22:40)
[2021-04-06] MEDS ORDERED: KETOROLAC 15 MG/ML VIAL IVP STA (23:02)
--- NOTE | 2021-04-06 23:05 | ED Physician Documentation ---
History of Present Illness - Stated complaint Stated Complaint: ABD PX/DIARRHEA - Chief complaint Chief Complaint: Trauma Abd - History obtained from History obtained from: Patient - Additonal information Additional information: 65-year-old man with past medical history of bipolar, schizophrenia, remote history of methamphetamine abuse, recently diagnosed carcinoid tumor about 7 months ago, just established care with oncology, presents with epigastric pain radiating to the left flank for the past several days, intermittent, aching, severe, worse with pressing on it. Patient reports he had 2 loose stools today that were nonbloody. denies fever, urinary sx, nausea. Patient was seen 5 days ago for the same symptoms, provided with pain medication and went home but then the pain recurred. Review of Systems Ten Systems: 10 systems reviewed and negative Constitutional: denies: Fever, Chills Cardiac: denies: Chest pain / pressure Respiratory: denies: Dyspnea GI: reports: Abdominal Pain. denies: Nausea, Vomiting, Constipation, Bloody / black stool : denies: Dysuria, Frequency, Hematuria PD PAST MEDICAL HISTORY - Past Medical History Past Medical History: Yes Cardiovascular: None Respiratory: None Neuro: None Endocrine/Autoimmune: None GI: None : None HEENT: None Psych: Depression, Bipolar disorder Musculoskeletal: Osteoarthritis Derm: None Other Past Medical History: Recently DX w/ Colon CA. - Past Surgical History Past Surgical History: No General: Other - Present Medications Home Medications: Ambulatory Orders Medication Instructions Recorded Confirmed HYDROcod/ACETAM 5/325 [Vicodin 1 - 2 ea PO Q6H PRN #15 tablet 10/10/12 03/06/21 5/325] Hyoscyamine Sulfate [Levsin-Sl] 0.125 mg SL Q6H PRN #30 tab 09/16/20 03/06/21 Hyoscyamine [Levsin] 0.125 mg SL Q6H PRN #20 tablet 01/24/21 03/06/21 Naproxen 250 mg PO BID 7 Days #30 tablet 01/24/21 03/06/21 HYDROmorphone [Dilaudid] 1 - 2 tab PO Q4H PRN #30 tablet 04/03/21 oxyCODONE [Roxicodone] 10 mg PO Q4H PRN #90 tablet 04/05/21 - Allergies Allergies/Adverse Reactions: Allergies Allergy/AdvReac Type Severity Reaction Status Date / Time No Known Drug Allergies Allergy Verified 04/06/21 23:03 - Social History Does the pt smoke?: No Smoking Status: Never smoker Does the pt drink ETOH?: No Does the pt have substance abuse?: No - Immunizations Immunizations are current?: No Immunizations: TDAP >10years/unknown - POLST Patient has POLST: No PD ED PE NORMAL - Vitals Vital signs reviewed: Yes - General General: Alert and oriented X 3, Other (wasted appearance. appears older than stated age. patient in moderate distress, bent over around his abdomen) - HEENT HEENT: Atraumatic, PERRL, EOMI, Moist mucous membranes, Pharynx benign - Neck Neck: Supple, no meningeal sign - Cardiac Cardiac: RRR - Respiratory Respiratory: No respiratory distress, Clear bilaterally - Abdomen Abdomen: Other (diffuse discomfort to palpation worst in epigastrium) - Back Back: No CVA TTP - Derm Derm: Normal color, Warm and dry - Extremities Extremities: No deformity - Neuro Neuro: Alert and oriented X 3, No motor deficit, No sensory deficit - Psych Psych: Normal mood, Normal affect Results - Vitals Vitals: Vital Signs - 24 hr 04/06/21 04/06/21 20:57 23:02 Temperature 37.2 C Heart Rate 110 H 115 H Respiratory 28 H 16 Rate Blood Pressure 157/96 H 129/73 O2 Saturation 99 91 L Oxygen O2 Source Room air - Labs Labs: Laboratory Tests 04/06/21 04/06/21 21:12 21:12 WBC 14.9 H RBC 4.02 L Hgb 10.4 L Hct 32.7 L MCV 81.3 MCH 25.9 L MCHC 31.8 L RDW 17.2 H Plt Count 631 H MPV 9.7 Neut # (Auto) 12.7 H Lymph # (Auto) 0.6 L Shelby # (Auto) 1.5 H Eos # (Auto) 0.0 Baso # (Auto) 0.1 Absolute Nucleated RBC 0.00 Nucleated RBC % 0.0 Sodium 134 L Potassium 3.8 Chloride 94 L Carbon Dioxide 27 Anion Gap 13.0 BUN 20 Creatinine 1.1 Estimated GFR (MDRD) 67 L Glucose 154 H Calcium 8.6 Total Bilirubin 0.9 AST 11 ALT 16 Alkaline Phosphatase 116 Total Protein 7.0 Albumin 3.0 L Globulin 4.0 Albumin/Globulin Ratio 0.8 L Lipase 19 L PD MEDICAL DECISION MAKING - ED course ED course: Patient went to CT but then became agitated as dye was being injected and refused scan, stating he doesn't want to have it done. explained medical necessity but patient does have capacity to refuse. will treat symptoms only for now. Patient stating he feels much better after 2nd dose of dilaudid and a dose of toradol. requesting to go home to sleep. 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 return precautions given. plan to f/u with oncologist. Departure - Departure Disposition: Home, Self Care Clinical Impression: Abdominal pain, Carcinoid tumor Condition: Good Instructions: Abdominal Pain Comments: You were seen in the emergency department for evaluation of abdominal pain. I am glad you are feeling better! Please follow-up with your oncologist and return to the emergency department if you have any new or worsening symptoms or other concerns.
[2021-04-06 23:16] VITALS: BP 129/73
--- NOTE | 2021-04-12 15:46 | XRAY Report ---
PROCEDURE: Abdomen 1 View X-Ray INDICATIONS: diffuse abd pain since saturday. Changed to XR for billing. TECHNIQUE: Single scout leaser image is provided for evaluation. This was acquired as part of a CT exam whic h was aborted without further images. COMPARISON: CT abdomen pelvis 03/30/2021 FINDINGS: This is a limited exam with a single scout leaser image. There is mild prominence of bowel loops within the midabdomen. IMPRESSION: Markedly limited exam with mild prominence of bowel loops in the midabdomen suggestive o f ileus versus partial small bowel obstruction. Further complete imaging with abdominal series or CT is recommended. Reviewed by: Mague Loomis MD on 04/12/2021 3:44 PM PST Approved by: Mague Loomis MD on 04/12/2021 3:44 PM PST Station ID: [id number]
== END 2021-04-07 00:12 | disposition home or self-care (01) ==
LOC: EDUNIT# → ED 20:52
DX: R10.13 Epigastric pain (principal); C18.9 Malignant neoplasm of colon, unspecified
CPT/HCPCS: 36415; 74177; 80053; 83690; 85025; 96374; 96375; 99282; 99283; J1170

== ENCOUNTER 2021-04-12 10:45 | Outpatient (CLI) | payer MEDICARE, MEDICAID | END 2021-04-12 10:46 | disposition EMS.NT | LOC: EMS 10:45 | DX: R10.9 Unspecified abdominal pain (principal) ==

== ENCOUNTER 2021-04-12 18:15 | Outpatient (CLI) | payer MEDICARE, MEDICAID | END 2021-04-12 18:16 | disposition critical access hospital (66) | LOC: EMS 18:15 | DX: R41.82 Altered mental status, unspecified (principal) | CPT/HCPCS: A0425; A0427 ==

== ENCOUNTER 2021-04-12 18:57 | Inpatient (IN) | payer MEDICARE, MEDICAID ==
[2021-04-12] MEDS ORDERED: SODIUM CHLORIDE 0.9% 1,000 ML IV STA ×2 (19:03→20:09)
--- NOTE | 2021-04-12 19:07 | ED Physician Documentation ---
History of Present Illness - Stated complaint Stated Complaint: UNRESPONSIVE - Additonal information Additional information: 65-year-old male who has a known history of colon cancer is brought in by EMS for concerns of unresponsiveness. Per EMS this patient is a full code. He was recently transition from Dilaudid to oxycodone for pain. EMS has been out to his house number of times recently. His sister found him sitting up in a chair but unresponsive and 911 was called. On presentation for EMS they noted that he was very tachypneic with low oxygen saturations. They did give him 0.4 mg of Narcan which seemed to improve his mentation. However he remained tachypneic enroute here to the ER. unable to obtain sats enroute As he presents here the gentleman is very cold and clammy. He opens his eyes to painful stimuli only and will localize but does not follow commands he appears nonfocal. He was hypotensive for EMS and they did give him a full liter of fluid. A second liter is infusing at this time. 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 He herrera shave a hx of so secondary to the tumor mass. Followed by out MAC Dr Middleton. Pt transitioned off dilaudid yesterday and started on oxycodone. Sister reports Patient was screaming in pain at home. Symptoms did not improve until he started taking 3 tablets of oxycodone every 4 hours. Was after this that he was found unresponsive. Review of Systems Unable to obtain: Unresponsive, Other (EMS) PD PAST MEDICAL HISTORY - Past Medical History Cardiovascular: None Respiratory: None Neuro: None Endocrine/Autoimmune: None GI: None : None HEENT: None Psych: Depression, Bipolar disorder Musculoskeletal: Osteoarthritis Derm: None - Past Surgical History Past Surgical History: No General: Other - Present Medications Home Medications: Ambulatory Orders Medication Instructions Recorded Confirmed HYDROcod/ACETAM 5/325 [Vicodin 1 - 2 ea PO Q6H PRN #15 tablet 10/10/12 03/06/21 5/325] Hyoscyamine Sulfate [Levsin-Sl] 0.125 mg SL Q6H PRN #30 tab 09/16/20 03/06/21 Hyoscyamine [Levsin] 0.125 mg SL Q6H PRN #20 tablet 01/24/21 03/06/21 Naproxen 250 mg PO BID 7 Days #30 tablet 01/24/21 03/06/21 HYDROmorphone [Dilaudid] 1 - 2 tab PO Q4H PRN #30 tablet 04/03/21 oxyCODONE [Roxicodone] 10 mg PO Q4H PRN #90 tablet 04/05/21 - Allergies Allergies/Adverse Reactions: Allergies Allergy/AdvReac Type Severity Reaction Status Date / Time No Known Drug Allergies Allergy Verified 04/06/21 23:03 - Social History Does the pt smoke?: No Smoking Status: Never smoker Does the pt drink ETOH?: No Does the pt have substance abuse?: No - Immunizations Immunizations are current?: No Immunizations: TDAP >10years/unknown - POLST Patient has POLST: No PD ED PE EXPANDED - General General: Disheveled, poorly kept, Unresponsive, Other (appears very ill) - Cardiac Cardiac: Tachy, Pedal strong equal (1+ radial and DP bilaterally), Prolonged cap refill - Respiratory Respiratory: Other (tachypneic; otherwise clear) - Abdomen Abdomen: Decreased BS, Tender to palpation (significant tenderness to palpation in all quadrants) - Derm Derm: Pale - Extremities Extremities: Decreased/absent pulse, Cold foot, Pale foot. No: Deformity, Tenderness, Pedal edema bilateral - Neuro Neuro: Disoriented, CNII-XII intact - GCS Eye Opening: To Pain Motor: Localizes to Pain Verbal: Incomprehensible Total: 9 Results - Vitals Vitals: Vital Signs - 24 hr 04/12/21 04/12/21 04/12/21 19:10 19:30 20:00 Temperature 36.8 C Heart Rate 113 H 90 112 H Respiratory 30 H 40 H 36 H Rate Blood Pressure 74/59 L 84/33 L 96/70 O2 Saturation 100 100 04/12/21 04/12/21 04/12/21 20:14 21:00 21:30 Temperature Heart Rate 103 H 109 H 103 H Respiratory 22 27 H 35 H Rate Blood Pressure 96/70 83/68 L 107/87 H O2 Saturation 92 100 99 04/12/21 23:00 Temperature Heart Rate 97 Respiratory 40 H Rate Blood Pressure 88/60 L O2 Saturation 95 Oxygen O2 Source Mechanical ventilator - EKG (time done) 1920 Rate: Rate (enter#) (110) Rhythm: Sinus tachycardia [place]: Normal Intervals: Normal AL. No: Prolonged QT QRS: Normal Ischemia: Non specific changes Compare to prior EKG: Old EKG unavailable Computer interpretation: Agree with computer - Labs Labs: Laboratory Tests 04/12/21 04/12/21 04/12/21 19:27 19:27 19:27 WBC 33.0 H RBC 4.06 L Hgb 10.7 L Hct 34.3 L MCV 84.5 MCH 26.4 L MCHC 31.2 L RDW 17.9 H Plt Count 294 MPV 9.4 Neut # (Auto) Not Reportable Lymph # (Auto) Not Reportable Brooke # (Auto) Not Reportable Eos # (Auto) Not Reportable Baso # (Auto) Not Reportable Absolute Nucleated RBC Not Reportable Total Counted 100 Band Neuts % (Manual) 52 H Abnorm Lymph % (Manual) 2 Metamyelocytes % 11 H Nucleated RBC % Not Reportable Neutrophils # (Manual) 26.4 H Lymphocytes # (Manual) 2.6 Monocytes # (Manual) 0.3 Eosinophils # (Manual) 0.0 Basophils # (Manual) 0.0 Differential Comment MANUAL DIFFERENTIAL Platelet Estimate NORMAL (130-450,000) Platelet Morphology 1+ LARGE PLATELETS RBC Morph Micro Appear 1+ ACANTHOCYTES PT INR Bld Gas Analysis Time Sample Site ABG pH ABG pCO2 ABG pO2 ABG HCO3 ABG Total CO2 ABG O2 Saturation ABG Base Excess [place] Test Respiration Rate O2 Delivery Device Vent Mode FiO2 Tidal Volume PEEP Sodium 134 L Potassium 3.1 L Chloride 100 L Carbon Dioxide 13 L Anion Gap 21.0 H BUN 21 H Creatinine 2.2 H Estimated GFR (MDRD) 30 L Glucose 94 Lactic Acid > 10.0 H* Calcium 8.4 L Total Bilirubin 1.1 H AST 94 H ALT 60 Alkaline Phosphatase 100 Troponin I High Sens Total Protein 5.3 L Albumin 2.1 L Globulin 3.2 Albumin/Globulin Ratio 0.7 L Urine Color Urine Clarity Urine pH Ur Specific [place] Urine Protein Urine Glucose (UA) Urine Ketones Urine Occult Blood Urine Nitrite Urine Bilirubin Urine Urobilinogen Ur Leukocyte Esterase Urine RBC Urine WBC Ur Squamous Epith Cells Urine Bacteria Urine Casts Urine Mucus Urine Culture Comments Nasal Adenovirus (PCR) Nasal B. parapertussis DNA (PCR) Nasal Coronavir 229E PCR Nasal Coronavir HKU1 PCR Nasal Coronavir NL63 PCR Nasal Coronavir OC43 PCR Nasal Enterovir/Rhinovir PCR Nasal Influenza B PCR Nasal Influenza A PCR Nasal Parainfluen 1 PCR Nasal Parainfluen 2 PCR Nasal Parainfluen 3 PCR Nasal Parainfluen 4 PCR Nasal RSV (PCR) Nasal B.pertussis DNA PCR Nasal C.pneumoniae (PCR) Daniel Human Metapneumo PCR Nasal M.pneumoniae (PCR) Nasal SARS-CoV-2 (PCR) Urine Opiates Screen Ur Oxycodone Screen Urine Methadone Screen Ur Propoxyphene Screen Ur Barbiturates Screen Ur Tricyclics Screen Ur Phencyclidine Scrn Ur Amphetamine Screen U Methamphetamines Scrn U Benzodiazepines Scrn Urine Cocaine Screen U Cannabinoids Screen Blood Type Antibody Screen 04/12/21 04/12/21 04/12/21 19:27 19:27 19:27 WBC RBC Hgb Hct MCV MCH MCHC RDW Plt Count MPV Neut # (Auto) Lymph # (Auto) Brooke # (Auto) Eos # (Auto) Baso # (Auto) Absolute Nucleated RBC Total Counted Band Neuts % (Manual) Abnorm Lymph % (Manual) Metamyelocytes % Nucleated RBC % Neutrophils # (Manual) Lymphocytes # (Manual) Monocytes # (Manual) Eosinophils # (Manual) Basophils # (Manual) Differential Comment Platelet Estimate Platelet Morphology RBC Morph Micro Appear PT 15.7 H INR 1.4 H Bld Gas Analysis Time Sample Site ABG pH ABG pCO2 ABG pO2 ABG HCO3 ABG Total CO2 ABG O2 Saturation ABG Base Excess Juarez Test Respiration Rate O2 Delivery Device Vent Mode FiO2 Tidal Volume PEEP Sodium Potassium Chloride Carbon Dioxide Anion Gap BUN Creatinine Estimated GFR (MDRD) Glucose Lactic Acid Calcium Total Bilirubin AST ALT Alkaline Phosphatase Troponin I High Sens 17.8 Total Protein Albumin Globulin Albumin/Globulin Ratio Urine Color Urine Clarity Urine pH Ur Specific [place] Urine Protein Urine Glucose (UA) Urine Ketones Urine Occult Blood Urine Nitrite Urine Bilirubin Urine Urobilinogen Ur Leukocyte Esterase Urine RBC Urine WBC Ur Squamous Epith Cells Urine Bacteria Urine Casts Urine Mucus Urine Culture Comments Nasal Adenovirus (PCR) Nasal B. parapertussis DNA (PCR) Nasal Coronavir 229E PCR Nasal Coronavir HKU1 PCR Nasal Coronavir NL63 PCR Nasal Coronavir OC43 PCR Nasal Enterovir/Rhinovir PCR Nasal Influenza B PCR Nasal Influenza A PCR Nasal Parainfluen 1 PCR Nasal Parainfluen 2 PCR Nasal Parainfluen 3 PCR Nasal Parainfluen 4 PCR Nasal RSV (PCR) Nasal B.pertussis DNA PCR Nasal C.pneumoniae (PCR) Daniel Human Metapneumo PCR Nasal M.pneumoniae (PCR) Nasal SARS-CoV-2 (PCR) Urine Opiates Screen Ur Oxycodone Screen Urine Methadone Screen Ur Propoxyphene Screen Ur Barbiturates Screen Ur Tricyclics Screen Ur Phencyclidine Scrn Ur Amphetamine Screen U Methamphetamines Scrn U Benzodiazepines Scrn Urine Cocaine Screen U Cannabinoids Screen Blood Type O POSITIVE Antibody Screen NEGATIVE 04/12/21 04/12/21 04/12/21 19:42 21:03 21:08 WBC RBC Hgb Hct MCV MCH MCHC RDW Plt Count MPV Neut # (Auto) Lymph # (Auto) Brooke # (Auto) Eos # (Auto) Baso # (Auto) Absolute Nucleated RBC Total Counted Band Neuts % (Manual) Abnorm Lymph % (Manual) Metamyelocytes % Nucleated RBC % Neutrophils # (Manual) Lymphocytes # (Manual) Monocytes # (Manual) Eosinophils # (Manual) Basophils # (Manual) Differential Comment Platelet Estimate Platelet Morphology RBC Morph Micro Appear PT INR Bld Gas Analysis Time 2102 Sample Site LEFT RADIAL ABG pH 7.26 L ABG pCO2 23 L* ABG pO2 161 H* ABG HCO3 10.0 L ABG Total CO2 10.7 L* ABG O2 Saturation 98 ABG Base Excess -15.4 L Juarez Test POSITIVE Respiration Rate O2 Delivery Device NON REBREATHER MASK Vent Mode FiO2 15.00 Tidal Volume PEEP Sodium Potassium Chloride Carbon Dioxide Anion Gap BUN Creatinine Estimated GFR (MDRD) Glucose Lactic Acid Calcium Total Bilirubin AST ALT Alkaline Phosphatase Troponin I High Sens Total Protein Albumin Globulin Albumin/Globulin Ratio Urine Color YELLOW Urine Clarity SL. CLOUDY Urine pH 5.5 Ur Specific [place] >=1.030 H Urine Protein 30 H Urine Glucose (UA) NEGATIVE Urine Ketones NEGATIVE Urine Occult Blood SMALL H Urine Nitrite NEGATIVE Urine Bilirubin NEGATIVE Urine Urobilinogen 0.2 (NORMAL) Ur Leukocyte Esterase NEGATIVE Urine RBC 11-25 H Urine WBC 4-5 Ur Squamous Epith Cells FEW Squamous Urine Bacteria None Seen Urine Casts 6-10 Hyaline Casts Urine Mucus Marked Strands Urine Culture Comments NOT INDICATED Nasal Adenovirus (PCR) NOT DETECTED Nasal B. parapertussis DNA (PCR) NOT DETECTED Nasal Coronavir 229E PCR NOT DETECTED Nasal Coronavir HKU1 PCR NOT DETECTED Nasal Coronavir NL63 PCR NOT DETECTED Nasal Coronavir OC43 PCR NOT DETECTED Nasal Enterovir/Rhinovir PCR NOT DETECTED Nasal Influenza B PCR NOT DETECTED Nasal Influenza A PCR NOT DETECTED Nasal Parainfluen 1 PCR NOT DETECTED Nasal Parainfluen 2 PCR NOT DETECTED Nasal Parainfluen 3 PCR NOT DETECTED Nasal Parainfluen 4 PCR NOT DETECTED Nasal RSV (PCR) NOT DETECTED Nasal B.pertussis DNA PCR NOT DETECTED Nasal C.pneumoniae (PCR) NOT DETECTED Daniel Human Metapneumo PCR NOT DETECTED Nasal M.pneumoniae (PCR) NOT DETECTED Nasal SARS-CoV-2 (PCR) NOT DETECTED Urine Opiates Screen NEGATIVE Ur Oxycodone Screen POSITIVE H Urine Methadone Screen NEGATIVE Ur Propoxyphene Screen NEGATIVE Ur Barbiturates Screen NEGATIVE Ur Tricyclics Screen NEGATIVE Ur Phencyclidine Scrn NEGATIVE Ur Amphetamine Screen POSITIVE H U Methamphetamines Scrn POSITIVE H U Benzodiazepines Scrn NEGATIVE Urine Cocaine Screen NEGATIVE U Cannabinoids Screen NEGATIVE Blood Type Antibody Screen 04/12/21 04/12/21 04/12/21 23:01 23:01 23:14 WBC RBC Hgb Hct MCV MCH MCHC RDW Plt Count MPV Neut # (Auto) Lymph # (Auto) Brooke # (Auto) Eos # (Auto) Baso # (Auto) Absolute Nucleated RBC Total Counted Band Neuts % (Manual) Abnorm Lymph % (Manual) Metamyelocytes % Nucleated RBC % Neutrophils # (Manual) Lymphocytes # (Manual) Monocytes # (Manual) Eosinophils # (Manual) Basophils # (Manual) Differential Comment Platelet Estimate Platelet Morphology RBC Morph Micro Appear PT INR Bld Gas Analysis Time 2303 Sample Site RIGHT RADIAL ABG pH 7.17 L* ABG pCO2 31 L ABG pO2 84 ABG HCO3 11.1 L ABG Total CO2 12.1 L ABG O2 Saturation 92 L ABG Base Excess -16.2 L Juarez Test POSITIVE Respiration Rate 30 O2 Delivery Device VENTILATOR Vent Mode ASSIST/CONTROL FiO2 100.00 Tidal Volume 400 PEEP 5 Sodium 134 L Potassium 3.9 Chloride 105 Carbon Dioxide 15 L Anion Gap 14.0 H BUN 25 H Creatinine 2.2 H Estimated GFR (MDRD) 30 L Glucose 83 Lactic Acid 8.3 H* Calcium 7.5 L Total Bilirubin AST ALT Alkaline Phosphatase Troponin I High Sens Total Protein Albumin Globulin Albumin/Globulin Ratio Urine Color Urine Clarity Urine pH Ur Specific [place] Urine Protein Urine Glucose (UA) Urine Ketones Urine Occult Blood Urine Nitrite Urine Bilirubin Urine Urobilinogen Ur Leukocyte Esterase Urine RBC Urine WBC Ur Squamous Epith Cells Urine Bacteria Urine Casts Urine Mucus Urine Culture Comments Nasal Adenovirus (PCR) Nasal B. parapertussis DNA (PCR) Nasal Coronavir 229E PCR Nasal Coronavir HKU1 PCR Nasal Coronavir NL63 PCR Nasal Coronavir OC43 PCR Nasal Enterovir/Rhinovir PCR Nasal Influenza B PCR Nasal Influenza A PCR Nasal Parainfluen 1 PCR Nasal Parainfluen 2 PCR Nasal Parainfluen 3 PCR Nasal Parainfluen 4 PCR Nasal RSV (PCR) Nasal B.pertussis DNA PCR Nasal C.pneumoniae (PCR) Daniel Human Metapneumo PCR Nasal M.pneumoniae (PCR) Nasal SARS-CoV-2 (PCR) Urine Opiates Screen Ur Oxycodone Screen Urine Methadone Screen Ur Propoxyphene Screen Ur Barbiturates Screen Ur Tricyclics Screen Ur Phencyclidine Scrn Ur Amphetamine Screen U Methamphetamines Scrn U Benzodiazepines Scrn Urine Cocaine Screen U Cannabinoids Screen Blood Type Antibody Screen - Rads (name of study) CT abd Radiology: Final report received (central carcinoid tumor with sbo, perforation and free air) CT head Radiology: See rad report CT cervical spine Radiology: EMP read contemporaneously CT chest Radiology: See rad report PD MEDICAL DECISION MAKING - ED course Complexity details: reviewed results, re-evaluated patient, considered differential, d/w patient ED course: 65-year-old male who has a past medical history most significant for mental health disorder, history of meth use, colon cancer with significant metastasis as well as carcinoid syndrome presents to the ED via EMS after being found unresponsive at home. History is obtained from the sister who reports that for the last few days the patient has been screaming and writhing in pain. He was transitioned off of Dilaudid to oxycodone where he is reportedly taking 3 tablets every 4 hours. EMS found him hypotensive and tachypneic. Unable to obtain sats as pt's extremeties quite cold. He was given Narcan X2 but did not become more arousable. He was maintaining his airway. On presentation here to the emergency department he is localizing pain, remains tachypneic with saturations of 95%. However he is very cool and cold to the touch. Initial blood pressures are in the 70s over 30s. Writhing in pain Pt did present in significant septic shock. He is found to have marked leukocytosis and bandemia as well as a lactate greater than 10. Initially we ordered 2 L of fluid followed by a third bolus. With the initiation of IV fluids his blood pressure stool steadily kelly. However he continued to writhe about in pain. The decision was then made after consulting with his sister to intubate the patient for airway protection as well as to facilitate management of his care. Subsequent intubation and CVL placement were completed with the help of anesthesia Pt's sister was unaware of how advanced his cancer was. Pt's sister consented to intubation, but was at the time of my first conversation, unsure if pt would want CPR 2220: Patient has been intubated by anesthesia. His initial ABG showed marked acidemia. His ventilator settings were initially made to mimic his respiratory effort to avoid over-ventilating him. It was noted during the resuscitation that he had a large amount of coffee- ground and black vomitus in his airway. It is suspected that he aspirated. Given the concerns for sepsis as well as aspiration and possible small bowel obstruction patient was given 2 g of ampicillin. He was previously covered with cefepime and vancomycin. 2300: I have spoken on the phone with the patient's sister Miriam. We discussed the gravity of the patient's illness which includes severe septic shock and likely small bowel obstruction vs early perforation in the setting of metastatic cancer and carcinoid tumor. Though his blood pressure has improved he remains very acidotic. He is received a total of 4 L of fluid. The patient's sister feels that the patient would not want nor would he benefit from a CPR thus we will not initiate CPR but she states that initiation of pressors if necessary are okay. I spoke with nighttime hospitalist Dr. Avila who graciously agrees to accept and admit this patient to the ICU. She is aware that the results of the multiple CT scans are pending but that there is suspicion for sbo vs possible perforation. - Critical Care Time(min): 30 Time Includes: Direct patient care, Review records, Reassess patient, Document care, Coordinate care, Family consult for tx dec Data interpretation: Labs, ABG Procedures included in critical care time: Peripheral IV Departure - Departure Disposition: 66 [facility] DC/Xfer Clinical Impression: Sepsis associated hypotension, Shock, Small bowel obstruction Metastatic cancer Qualifiers: Area of secondary neoplastic involvement: unspecified site Qualified Code(s): C 79.9 - Secondary malignant neoplasm of unspecified site Discharge Date/Time: 04/12/21 23:45
[2021-04-12 19:39] LABS: BASOPHILS % (AUTO) 0.3 %; EOSINOPHILS % (AUTO) 0.1 %; HCT - HEMATOCRIT 34.3 % (42.0-52.0); HGB - HEMOGLOBIN 10.7 g/dL (14.0-18.0); LYMPHOCYTES % (AUTO) 3.2 %; MEAN CORPUSCULAR HEMOGLOBIN 26.4 pg (27.0-31.0); MEAN CORPUSCULAR HGB CONC 31.2 g/dL (32.0-36.0); MEAN CORPUSCULAR VOLUME 84.5 fL (80.0-94.0); MEAN PLATELET VOLUME 9.4 fL (7.4-11.4); MONOCYTES % (AUTO) 4.2 %; NEUTROPHILS % (AUTO) 87.6 %; PLT - PLATELET COUNT 294 10^3/uL (130-450); RED BLOOD COUNT 4.06 10^6/uL (4.70-6.10); RED CELL DISTRIBUTION WIDTH 17.9 % (12.0-15.0)
[2021-04-12 19:51] LABS: LACTIC ACID, VENOUS > 10.0 mmol/L (0.5-2.2)
[2021-04-12 19:52] LABS: MUDS CUTOFF CONCENTRATIONS CUTOFF CONC BELOW:
[2021-04-12 19:53] LABS: ALBUMIN 2.1 g/dL (3.2-5.5); ALBUMIN/GLOBULIN RATIO 0.7 (1.0-2.2); BILIRUBIN,TOTAL 1.1 mg/dL (0.2-1.0); CALCIUM 8.4 mg/dL (8.5-10.3); CREATININE 2.2 mg/dL (0.6-1.2); POTASSIUM 3.1 mmol/L (3.5-5.0); TOTAL PROTEIN 5.3 g/dL (6.7-8.2)
[2021-04-12 20:04] LABS: BILIRUBIN,URINE NEGATIVE (NEGATIVE); GLUCOSE, URINE (UA) NEGATIVE (NEGATIVE); KETONES,URINE (UA) NEGATIVE (NEGATIVE); LEUKOCYTE ESTERASE, URINE NEGATIVE (NEGATIVE); NITRITE,URINE NEGATIVE (NEGATIVE); OCCULT BLOOD,URINE SMALL (NEGATIVE); PH,URINE 5.5 PH (5.0-7.5); PROTEIN,URINE 30 mg/dL (NEGATIVE); UROBILINOGEN,URINE 0.2 (NORMAL) E.U./dL (NORMAL)
[2021-04-12] MEDS ORDERED: CEFEPIME 2 GM in SODIUM CHLORIDE 0.9% MINIBAG 100 ML IV STA (20:07)
[2021-04-12] MEDS ORDERED: NALOXONE 0.4 MG/ML VIAL IVP STA (20:17)
[2021-04-12 20:19] LABS: ABNORMAL LYMPHS % (MANUAL) 2 %; BAND NEUTROPHILS % (MANUAL) 52 %; LYMPHOCYTES # (MANUAL) 2.6 10^3/uL (1.5-3.5); LYMPHOCYTES % (MANUAL) 6 %; METAMYELOCYTES % (MANUAL) 11 %; MONOCYTES # (MANUAL) 0.3 10^3/uL (0.0-1.0); NEUTROPHILS # (MANUAL) 26.4 10^3/uL (1.5-6.6)
[2021-04-12 20:22] LABS: DIFFERENTIAL COMMENT MANUAL DIFFERENTIAL; PLATELET ESTIMATE, MANUAL NORMAL (130-450,000) (NORMAL)
[2021-04-12 20:24] LABS: AMPHETAMINE SCREEN,URINE POSITIVE (NEGATIVE); BARBITURATE SCREEN,UR NEGATIVE (NEGATIVE); BENZODIAZEPINES SCREEN, URINE NEGATIVE (NEGATIVE); COCAINE SCREEN URINE NEGATIVE (NEGATIVE); METHADONE SCREEN, URINE NEGATIVE (NEGATIVE); METHAMPHETAMINES SCREEN, URINE POSITIVE (NEGATIVE); OPIATE SCREEN, URINE NEGATIVE (NEGATIVE); OXYCODONE SCREEN, URINE POSITIVE (NEGATIVE); PROPOXYPHENE SCREEN, URINE NEGATIVE (NEGATIVE); THC CANNABINOID SCREEN, URINE NEGATIVE (NEGATIVE); TRICYCLIC ANTIDEPRESSANT,URINE NEGATIVE (NEGATIVE)
[2021-04-12 20:30] LABS: INR 1.4 (0.8-1.2); PT - PROTHROMBIN TIME 15.7 secs (9.9-12.6)
[2021-04-12 20:32] LABS: BACTERIA,URINE None Seen /HPF (None Seen); CASTS, URINE 6-10 Hyaline Casts /LPF; CLARITY,URINE SL. CLOUDY (CLEAR); MUCUS,URINE Marked Strands; SQUAMOUS EPITHELIAL CELL,UR FEW Squamous (<= Few)
--- NOTE | 2021-04-12 20:36 | XRAY Report ---
PROCEDURE: Chest 1 View X-Ray INDICATIONS: chest pain TECHNIQUE: One view of the chest was acquired. COMPARISON: None FINDINGS: Surgical changes and devices: None. Lungs and pleura: No pleural effusions or pneumothorax. Lungs are clear. Mediastinum: Mediastinal contours appear normal. Heart size is enlarged. Bones and chest wall: No suspicious bony lesions. Overlying soft tissues appear unremarkable. IMPRESSION: Cardiomegaly. No acute abnormality. Reviewed by: Js Chavez on 04/12/2021 8:35 PM [facility] Approved by: Js Chavez on 04/12/2021 8:35 PM [facility] Station ID: [id number]
[2021-04-12] MEDS ORDERED: VANCOMYCIN INJ 1 GM in SODIUM CHLORIDE 0.9% 500 ML IV STA (20:53)
[2021-04-12] MEDS ORDERED: VANCOMYCIN IV SCH (21:00)
[2021-04-12] MEDS ORDERED: SODIUM CHLORIDE 0.9% IV SCH (21:00)
[2021-04-12] MEDS ORDERED: VANCOMYCIN 1 GM VIAL ONE (21:04)
[2021-04-12 21:05] LABS: ABG BASE EXCESS -15.4 mmol/L (-2.0-3.0); ABG OXYGEN SATURATION 98 % (94-98); ABG PH 7.26 (7.35-7.45)
[2021-04-12 21:06] LABS: ALLEN TEST POSITIVE
[2021-04-12 21:07] LABS: ABG PCO2 23 mmHg (34-45); ABG PO2 161 mmHg (80-100); ABG TCO2 10.7 MMOL/L (21.0-29.0)
[2021-04-12] MEDS ORDERED: DEXAMETHASONE 10 MG/ML VIAL IVP STA (21:23)
[2021-04-12] MEDS ORDERED: IOVERSOL 320 100 ML VIAL IVP ONE ×2 (21:36→22:51)
[2021-04-12] MEDS ORDERED: MIDAZOLAM 2 MG/2 ML VIAL IVP STA (21:41)
[2021-04-12] MEDS ORDERED: MIDAZOLAM 2 MG/2 ML VIAL ONE (21:50)
[2021-04-12] MEDS ORDERED: MIDAZOLAM DRIP 50 MG/50 ML 50 MG/50 ML BAG IV SCH (22:00)
[2021-04-12] MEDS ORDERED: KETAMINE 500 MG/10 ML VIAL IVP STA (22:24)
--- NOTE | 2021-04-12 22:46 | ANESTHESIA PROCEDURE NOTE ---
Anesthesia Intubation Template - Intubation Blade: positive: Glidescope Tube: Size-enter number (8.0), Cuffed, Marked at teeth-enter cm (27cm) Route: Oral Placement Confirmation: End tidal CO2, Direct visualization, Bilateral breath sounds Complications: No complications
--- NOTE | 2021-04-12 22:47 | ANESTHESIA PROCEDURE NOTE ---
Anesth Central Line Template - Central Line Central Line Preparation: Unable to obtain consent Central line location: Right IJ Central line type: Triple lumen Central line catheter tip site resides: Atrium, right Central line aftercare: Chlorhexidine disc placed, Secured, Placement confirmed, No pneumothorax, No complications, Bundle checklist complete, Pt tolerated well
[2021-04-12 23:05] LABS: ABG BASE EXCESS -16.2 mmol/L (-2.0-3.0); ABG HCO3 11.1 mmol/L (22.0-26.0); ABG OXYGEN SATURATION 92 % (94-98); ABG PCO2 31 mmHg (34-45); ABG PO2 84 mmHg (80-100); ABG TCO2 12.1 MMOL/L (21.0-29.0); ALLEN TEST POSITIVE
--- NOTE | 2021-04-12 23:05 | CONSULTATION NOTE ---
Consultation Report: consulted by ED for emergent intubation. Unable to obtain verbal consent due to AMS, pt responsive only to painful stimuli. O2 sat 93-95% on 100%NRB, RR40's HOTN, tachycardic. All emergency equipment at the bedside. 2105 Pt sedated with Etomidate 35mg, Succinylcholine 120mg. 2106 Pt intubate with #8.0 ETT using Glidescope VL #4, Grade 1 view, secured 27cm @ teeth, +BBS, +CO2, cuff visualized through VC on VL. Copious amounts of black emesis noted in back of oralpharynx upon view with VL. Suctioned 200+cc of gastric contents prior to and during intubation. Notified provider of risk of aspiration. After airway secured, continued to suction large amounts of black gastric contents. OGT placed using Glidescope VL to watch as OGT was placed down esophagus into stomach. Afterwards a CVL was requested by Braden Nj APRN. Pt prepped and draped in sterile fashion. 7Fr 3-lumen CVL placed in R IJ under US guidance. Easy placement with no complications, VSS. Line sutured and sterile dressing applied. Upon initial port CXR, tip of CL appeared deep. CL pulled back approx 5 cm and resutured and new sterile dressing applied under sterile technique. Pt tolerated well, NAC. VS remain stable. New port CXR obtained at the bedside and tip of CVL in appropriate placement. Care resumed to ED.
[2021-04-12 23:09] LABS: ABG PH 7.17 (7.35-7.45)
[2021-04-12 23:10] LABS: ABG MODE OF VENTILATION ASSIST/CONTROL; ABG RESPIRATORY RATE 30 b/min
[2021-04-12] MEDS ORDERED: ONDANSETRON 4 MG/2 ML VIAL IVP PRN (23:16)
[2021-04-12] MEDS ORDERED: SODIUM CHLORIDE FLUSH 0.9% 10 ML SYRINGE IVP PRN (23:16)
[2021-04-12 23:18] LABS: B. PARAPERTUSSIS- RESP PCR PAN NOT DETECTED; B. PERTUSSIS- RESP PCR PANEL NOT DETECTED; C. PNEUMONIAE- RESP PCR PANEL NOT DETECTED; CORONAVIRUS 229E-RESP PCR NOT DETECTED; CORONAVIRUS HKU1-RESP PCR NOT DETECTED; CORONAVIRUS NL63-RESP PCR NOT DETECTED; CORONAVIRUS OC43-RESP PCR NOT DETECTED; HUMAN METAPNEUMOVIRUS NOT DETECTED; INFLUENZA A- RESP PCR PANEL NOT DETECTED; INFLUENZA B - RESP PCR PANEL NOT DETECTED; M. PNEUMONIAE- RESP PCR PANEL NOT DETECTED; PARAINFLUENZA VIRUS 1 NOT DETECTED; PARAINFLUENZA VIRUS 2 NOT DETECTED; PARAINFLUENZA VIRUS 3 NOT DETECTED; PARAINFLUENZA VIRUS 4 NOT DETECTED; RHINOVIRUS/ENTEROVIRUS NOT DETECTED; RSV- RESP PCR PANEL NOT DETECTED; SARS-CoV-2 -RESP PCR PANEL NOT DETECTED
[2021-04-12 23:26] LABS: CALCIUM 7.5 mg/dL (8.5-10.3); CREATININE 2.2 mg/dL (0.6-1.2); POTASSIUM 3.9 mmol/L (3.5-5.0)
[2021-04-12 23:29] LABS: LACTIC ACID, VENOUS 8.3 mmol/L (0.5-2.2)
--- NOTE | 2021-04-12 23:29 | HISTORY & PHYSICAL EXAMINATION ---
Chief Complaint - Chief Complaint Chief Complaint: Unresponsive, brought in by EMS History of Present Illness - Admitted From Admitted From:: ED - History Obtained From History obtained from: ED provider and chart review - History of Present Illness HPI Comment/Other: This is a 65-year-old white male who is single, and lives with his sister. 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 He is followed in the [facility] [place] clinic by Dr. Palomino who just saw him on 04/10/2019 with plan for starting Lanreotide chemo monthly and needing IR evaluation of a neck mass. The patient also has had recurrent small bowel obstruction due to the small bowel primary tumor and he has been referred for outpatient surgical evaluation. He has carcinoid syndrome with elevated urine 5HIAA and recurrent diarrhea. He has chronic anemia, likely due to recurrent bleed and iron deficiency. He has undiagnosed psych problems, as he hears and sees "special agents or forces shining radiowaves on him causing abdominal pain and cancer", per Dr Palomino's note. He had been managing abdominal pain with Dilaudid, which was transitioned to oxycodone yesterday. Sister reported the patient was screaming in pain at home. His symptoms did not improve until he started taking 3 tablets of oxycodone every 4 hours. His sister found him sitting up in a chair but was unresponsive and 911 was called. At the scene, EMS noted that he was very tachypneic with low oxygen saturations and BP was 40 palp. They did give him 0.4 mg of Narcan which seemed to improve his mentation slightly. They were unable to obtain sats enroute, gave a liter of fluid and he presented to the ER cold and clammy with BP 70. He opened his eyes to painful stimuli only and did not follow commands. He was writhing in pain from the abdomen. He received more Narcan, iv fluids, and empiric iv Vanco and Cefepime and the sister was called to discuss management; he was then intubated and sent to CT for scanning. CT results are pending. He is COVID neg, his L.A. is >10, WBC 33 with 52% Bands. He is being admitted to the ICU in critical condition. Just prior to leaving the ER, the Radiologist called with critical lab results: He has a hyperdense mass in the right frontal lobe which could be infarct or a metastatic mass. He has small bowel obstruction with infarcted bowel and free air and free fluid in the peritoneum. History - Past Medical History Cardiovascular: reports: None Respiratory: reports: None Neuro: reports: None Endocrine/Autoimmune: reports: None GI: reports: None : reports: None HEENT: reports: None Psych: reports: Depression, Bipolar disorder Musculoskeletal: reports: Osteoarthritis Derm: reports: None MRSA Hx?: Yes - Past Surgical History General: reports: Other - Family & Social History Living arrangement: At home Living Situation: With family - Substance History Use: Uses substance without health or social issues: Alcohol, Amphetamine - POLST Patient has POLST: No Meds/Allgy - Home Medications Home Medications: Ambulatory Orders Medication Instructions Recorded Confirmed HYDROcod/ACETAM 5/325 [Vicodin 1 - 2 ea PO Q6H PRN #15 tablet 10/10/12 03/06/21 5/325] Hyoscyamine Sulfate [Levsin-Sl] 0.125 mg SL Q6H PRN #30 tab 09/16/20 03/06/21 Hyoscyamine [Levsin] 0.125 mg SL Q6H PRN #20 tablet 01/24/21 03/06/21 Naproxen 250 mg PO BID 7 Days #30 tablet 01/24/21 03/06/21 HYDROmorphone [Dilaudid] 1 - 2 tab PO Q4H PRN #30 tablet 04/03/21 oxyCODONE [Roxicodone] 10 mg PO Q4H PRN #90 tablet 04/05/21 - Allergies Allergies/Adverse Reactions: Allergies Allergy/AdvReac Type Severity Reaction Status Date / Time No Known Drug Allergies Allergy Verified 04/06/21 23:03 Review of Systems - All Other Systems All Other Systems: reports: Other (Unable to get specifics for a ROS, since the patient is sedated, intubated on the ventilator. Sister (by phone call) confirmed that he has paranoid thoughts and hallucinations.) Exam - Vital Signs Reviewed Vital Signs: Yes Vital Signs: Vital Signs x48h Temp Pulse Resp BP Pulse Ox 04/12/21 23:19 95 35 H 88/60 L 97 04/12/21 20:14 103 H 22 96/70 92 04/12/21 20:00 112 H 36 H 96/70 100 04/12/21 19:30 90 40 H 84/33 L 100 04/12/21 19:10 36.8 C 113 H 30 H 74/59 L - Physical Exam General Appearance: positive: Other (Tall, thin male, appears older than his age. Sedated, on the vent.) Eyes Bilateral: positive: No lid inflammation Neck: positive: Other (Mass R side) Respiratory: positive: Breath sounds nml (on the vent) Cardiovascular: positive: Regular rate & rhythm, No murmur, Tachycardia Abdomen: positive: Other (Mildly distended, no bowel sounds in any quadrant) Skin: positive: Warm, Dry, Pallor Extremities: positive: No pedal edema Neurologic/Psychiatric: positive: Other (Sedated) Sepsis Event Note (H) - Evaluation Current Stage of Sepsis: Septic shock Possible source of Sepsis: positive: GI tract/intra-abdominal - Sepsis Criteria Sepsis Criteria: Recorded Heart Rate greater than 90 bpm, Recorded Respiratory Rate greater than 20, WBC count greater than 10% bands, WBC count greater than 12,000 or less than 4000, MAP less than 65 mmHg, SBP less than 90 mmHg, Metabo lic: lactate > 2 mmol/L Conclusion/Plan - Problem List (1) Septic shock Conclusion/Plan: He is hypotensive, tachycardic, has elevated lactic acid level, elevated white blood count, very elevated bandemia, consistent with septic shock, and the source appears to be abdominal, now that CT abdomen results show that he has ischemic bowel with perforation. He has very slim likelihood of survival and this was discussed by phone by me with the sister. She would like everything done, but no CPR. We will continue with IV fluids, iv bicarb, IV pressors if needed, and iv empiric broad-spectrum antibiotics using Zosyn. Follow lactic acid level till normalizes. We will obtain General Surgery consult to manage the perforation. (2) Ischemic bowel disease Conclusion/Plan: This is the likely cause of his pain and his septic shock. We will manage as above in #1. Will use fentanyl for sedative and pain management (3) Perforated bowel Conclusion/Plan: Will manage as a #1. General Surgery consult was called by me, after CT results were known. Dr Sarthak Cheng to see him. (4) YASHIRA (acute kidney injury) Conclusion/Plan: Continue with IV fluids. Avoid nephrotoxins. Vanco will not be continued, given that this is an abdominal source of sepsis. Follow BMP daily (5) Brain mass Conclusion/Plan: This is a new finding and the critical result was called to me by the r adiologist. This may explain some of his psychiatric symptoms noted by Dr. Nj of oncology. I informed the sister of this ffinding in our phone call. (6) Carcinoid tumor Conclusion/Plan: As per history. He gets intermittent diarrhea already. The narcotics slowed this down slightly, as per the oncology note. He had pos tumor markers, was to start getting chemo monthly. - Lab Results Fish Bones: 04/12/21 19:27 04/12/21 23:14 - Diagnostic Imaging Results Diagnostic Imaging Results: positive: Final report reviewed
--- NOTE | 2021-04-12 23:31 | XRAY Report ---
PROCEDURE: Chest for Line Placement INDICATIONS: ETT, NGT, CVL TECHNIQUE: One view of the chest was acquired. COMPARISON: 04/11/2021 FINDINGS: Surgical changes and devices: Endotracheal tube is in good position 2 cm above the anali. Nasogastr ic tube is well-positioned. Right IJ catheter is seen at the level of the SVC. Lungs and pleura: No pleural effusions or pneumothorax. Subtle diffuse airspace opacities noted. Mediastinum: Mediastinal contours appear normal. Heart size is normal. Bones and chest wall: No suspicious bony lesions. Overlying soft tissues appear unremarkable. IMPRESSION: 1. Right IJ catheter, endotracheal tube, and nasogastric tube appear well-positioned. 2. Subtle diffuse airspace opacities, otherwise no acute abnormality. Reviewed by: Js Chavez on 04/12/2021 11:31 PM PST Approved by: Js Chavez on 04/12/2021 11:31 PM PST Station ID: [id number]
[2021-04-12] MEDS ORDERED: fentaNYL 2,000 MCG/200 ML 2,000 MCG/200 ML BAG IV SCH (23:45)
--- NOTE | 2021-04-12 23:45 | CT Report ---
PROCEDURE: Abdomen/Pelvis W INDICATIONS: ? SBO CONTRAST: IV CONTRAST: Optiray 320 ml: 80 PO CONTRAST: *NO PO CONTRAST TECHNIQUE: After the administration of contrast, 5 mm thick sections acquired from the diaphragms to the sym physis. 5 mm thick coronal and sagittal reformats were acquired. For radiation dose reduction, the following was used: automated exposure control, adjustment of mA and/or kV according to patient size . COMPARISON: 09/05/2020 FINDINGS: Image quality: Excellent. ABDOMEN: Lung bases: There is bibasilar atelectasis and consolidation in the left lower lobe. No pneumothorax or pleural effusion. Solid organs: The liver has a heterogenous appearance with multiple low densities consistent with met astatic disease. The gallbladder is normal. The spleen is normal. Both adrenal glands have a normal a ppearance. The kidneys demonstrate heterogenous attenuation. There is free air and free fluid. The la rge bowel is distended. There is diffuse mesenteric edema. The small bowel is distended with hyperenh ancing mckeon consistent with small bowel obstruction and mesenteric ischemia. A nasogastric tube is w ell-positioned. There is a spiculated mass in the central abdomen with surrounding desmoplastic react ion with associated stellate appearance of the adjacent loops of bowel consistent with patient histor y of carcinoid. Peritoneum and bowel: Free air or free fluid in the abdomen consistent with perforation. Nodes and vessels: No retroperitoneal or mesenteric adenopathy by size criteria. Aorta and inferior vena cava are normal in size. Miscellaneous: No ventral hernias. PELVIS: Genitourinary: Bladder wall thickness is normal. Miscellaneous: No inguinal hernias or adenopathy. Bones: No suspicious bony lesions. No vertebral body compression fractures. IMPRESSION: 1. Carcinoid tumor in the central abdomen causing small bowel obstruction, ischemic bowel with free a ir or free fluid consistent with perforation. 2. Hepatic metastatic disease. Findings were discussed with Dr. Wilson at 11:43 PM on 04/12/2021. Reviewed by: Js Chavez on 04/12/2021 11:44 PM PST Approved by: Js Chavez on 04/12/2021 11:44 PM PST Station ID: [id number]
--- NOTE | 2021-04-12 23:46 | ED Physician Documentation ---
ED Addendum - Addendum Addendum: 04/12/21 23:45 MANAGER CASH Clem left for the night and a critical radiology read was called in to me. Patient has infarcted bowel, free air and free fluid on CT a/p. d/w Dr. Avila who is aware.
--- NOTE | 2021-04-12 23:51 | CT Report ---
PROCEDURE: HEAD WO INDICATIONS: ams TECHNIQUE: Noncontrast 4.5 mm thick angled axial sections acquired from the foramen magnum to the vertex. For r adiation dose reduction, the following was used: automated exposure control, adjustment of mA and/or kV according to patient size. COMPARISON: None. FINDINGS: Image quality: Excellent. CSF spaces: Basal cisterns are patent. No extra-axial fluid collections. Ventricles are normal in size and shape. Brain: In the right frontal lobe there is a 2.1 x 2.2 cm hypodensity consistent with infarction. A c avum septum pellucidum with vergae is also seen. No midline shift. No intracranial masses or hemorrh age. Veliz-white matter interface is normal. Skull and face: Calvarium and visualized facial bones are intact, without suspicious lesions. Sinuses: Visualized sinuses and mastoids are clear. IMPRESSION: Right frontal lobe hypodensity consistent with acute infarction or mass. Given history of carcinoid tumor in the abdomen and hepatic metastasis, metastatic disease is favored. Findings terrell martinez discussed with Dr. Carpenter at 2349 on 04/12/2021. Reviewed by: Js Chavez on 04/12/2021 11:51 PM PST Approved by: Js Chavez on 04/12/2021 11:51 PM PST Station ID: [id number]
[2021-04-13] MEDS ORDERED: AMPICILLIN 2 GM in SODIUM CHLORIDE 0.9% MINIBAG 100 ML IV SCH ×2
--- NOTE | 2021-04-13 00:01 | CT Report ---
PROCEDURE: CERVICAL SPINE WO INDICATIONS: unresponsive TECHNIQUE: Noncontrast 3 mm thick sections acquired from the skull base to the T4 level. Sagittal and coronal r eformats were then constructed. For radiation dose reduction, the following was used: automated exp osure control, adjustment of mA and/or kV according to patient size. COMPARISON: None. FINDINGS: Image quality: Excellent. Bones: No fractures or dislocations. Visualized superior ribs are intact. Soft tissues: Prevertebral soft tissues are normal in thickness. No paravertebral hematomas. No ap ical pneumothoraces. Endotracheal tube and nasogastric tube appear well-positioned. IMPRESSION: No acute abnormality of the cervical spine. Reviewed by: Js Chavez on 04/13/2021 12:[address] [facility] Approved by: Js Chavez on 04/13/2021 12:[address] [facility] Station ID: [id number]
--- NOTE | 2021-04-13 00:05 | CT Report ---
PROCEDURE: CHEST W INDICATIONS: unresponsive CONTRAST: IV CONTRAST: Optiray 320 ml: 80 PO CONTRAST: *NO PO CONTRAST TECHNIQUE: After the administration of intravenous contrast, 1 mm axial images were acquired from the pulmonary apices through the posterior costophrenic angles. Axial 5 mm soft tissue kernel reconstructions were performed as well as 8 mm axial MIP and coronal and sagittal 5 mm reformations. For radiation dose reduction, the following was used: automated exposure control, adjustment of mA and/or kV according to patient size. COMPARISON: None. FINDINGS: Image quality: Excellent. Lungs and pleura: Bibasilar atelectasis with consolidation in the left lower lobe. There are patchy d iffuse airspace opacities bilaterally. No pneumothorax or pleural effusion. Mediastinum: Heart size is normal. No pericardial effusion. AP window lymph node is enlarged measur ing 2 cm. No hilar adenopathy. Thoracic aorta and central pulmonary arteries are normal in size. Eso phagus is normal in caliber. No hiatal hernia. The endotracheal tube is above the anali. Bones and chest wall: No suspicious bony lesions. No vertebral body compression fractures. No axil shwetha or supraclavicular adenopathy by size criteria. Thyroid gland is normal. Abdomen: Visualized upper abdominal solid organs appear normal. Upper abdominal bowel loops are nor mal in caliber. IMPRESSION: 1. Bibasilar atelectasis with consolidation in the left lower lobe consistent with pneumonia. 2. Mediastinal adenopathy in the AP window. 3. Reviewed by: Js Chavez on 04/13/2021 12:04 AM [facility] Approved by: Js Chavez on 04/13/2021 12:04 AM PST Station ID: [id number]
[2021-04-13] MEDS ORDERED: SODIUM BICARBONATE ABBOJECT 50 MEQ/50 ML SYRINGE IVP ONE (00:06)
[2021-04-13] MEDS ORDERED: fentaNYL 2,000 MCG/200 ML 2,000 MCG/200 ML BAG IV SCH (00:13)
[2021-04-13] MEDS: MIDAZOLAM DRIP 50 MG/50 ML 50 MG/50 ML BAG IV SCH ×2 (00:15→05:00)
[2021-04-13] MEDS ORDERED: SODIUM CHLORIDE 0.9% 250 ML IV ONE (00:16)
[2021-04-13] MEDS: PIPERACILLIN/TAZOBACTAM 3.375 GM in SODIUM CHLORIDE 0.9% MINIBAG 100 ML IV SCH ×2 (00:24→08:15)
[2021-04-13] MEDS: SODIUM CHLORIDE FLUSH 0.9% 10 ML SYRINGE IVP SCH ×2 (00:59→09:00)
[2021-04-13] MEDS ORDERED: SODIUM CHLORIDE 0.9% 1,000 ML IV SCH (01:00)
[2021-04-13] MEDS ORDERED: fentaNYL 2,500 MCG/250 ML 2,500 MCG/250 ML BAG IV SCH (01:00)
[2021-04-13] MEDS ORDERED: SODIUM BICARBONATE 150 MEQ in DEXTROSE 5% 1,000 ML IV SCH (01:00)
[2021-04-13] MEDS ORDERED: SODIUM CHLORIDE 0.9% 1,000 ML IV ONE (01:03)
--- NOTE | 2021-04-13 01:22 | HISTORY & PHYSICAL EXAMINATION ---
Chief Complaint - Chief Complaint Chief Complaint: pneumoperitoneum, mesenteric ischemia History of Present Illness - History of Present Illness HPI Comment/Other: Pt is a 65 yo M with hx drug use (amphetamines) and carcinoid tumor with metastatic disease to the liver, spine/bones and likely chest/neck/brain c/b intermittent obstructive symptoms managed non-operatively who presented in extremis and was found to have free air on the CT scan for which general surgery is involved. He has a known history of abdominal carcinoid with mesenteric involvement with intermittent obstructive symptoms that had been managed non- operatively. Currently follows with oncology and has received some treatment; most recent development was an enlarged lymph node in the neck which was to be biopsied in the near future. He was found down by his sister and presented to the ED with severe hypotension. He was treated with intubation, fluid resuscitation and broad spectrum abx and admitted to the ICU. In the ED his labs are notable for WBC 33, Hgb 11, Cr 2.2 (from baseline around 1), albumin 2.1, pH 7.17, lactate >10. CT A/P showing metastatic disease to the liver, diffuse mesenteric edema, distended small bowel with hyperenhancement c/w obstruction and ischemia, spiculated mass in the central abdomen with desmoplastic reaction, and free air and fluid in the abdomen. CT of the chest showed mediastinal adenopathy in the AP window. CT brain showed R frontal hypodensity c/w infarction or mass, favor metastatic disease. In ICU pt continued to be hypotensive, was started on levophed drip and broad abx were continued. History - Past Medical History Cardiovascular: reports: None Respiratory: reports: None Neuro: reports: None Endocrine/Autoimmune: reports: None GI: reports: None : reports: None HEENT: reports: None Psych: reports: Depression, Bipolar disorder Musculoskeletal: reports: Osteoarthritis Derm: reports: None MRSA Hx?: Yes - Past Surgical History General: reports: Other - Family & Social History Living arrangement: At home Living Situation: With family - Substance History Use: Uses substance without health or social issues: Alcohol, Amphetamine - POLST Patient has POLST: No Meds/Allgy - Home Medications Home Medications: Ambulatory Orders Medication Instructions Recorded Confirmed HYDROcod/ACETAM 5/325 [Vicodin 1 - 2 ea PO Q6H PRN #15 tablet 10/10/12 03/06/21 5/325] Hyoscyamine Sulfate [Levsin-Sl] 0.125 mg SL Q6H PRN #30 tab 09/16/20 03/06/21 Hyoscyamine [Levsin] 0.125 mg SL Q6H PRN #20 tablet 01/24/21 03/06/21 Naproxen 250 mg PO BID 7 Days #30 tablet 01/24/21 03/06/21 HYDROmorphone [Dilaudid] 1 - 2 tab PO Q4H PRN #30 tablet 04/03/21 oxyCODONE [Roxicodone] 10 mg PO Q4H PRN #90 tablet 04/05/21 - Allergies Allergies/Adverse Reactions: Allergies Allergy/AdvReac Type Severity Reaction Status Date / Time No Known Drug Allergies Allergy Verified 04/06/21 23:03 Review of Systems - All Other Systems All Other Systems: reports: Other (Unable to review due to clinical status) Exam - Vital Signs Reviewed Vital Signs: Yes Vital Signs: Vital Signs x48h Temp Pulse Pulse Resp BP BP Pulse Ox 04/13/21 00:00 36.6 C 100 41 H 98/57 L 96 04/12/21 23:33 96 04/12/21 23:19 95 35 H 88/60 L 97 04/12/21 23:00 97 40 H 88/60 L 95 04/12/21 21:30 103 H 35 H 107/87 H 99 04/12/21 21:00 109 H 27 H 83/68 L 100 04/12/21 20:14 103 H 22 96/70 92 04/12/21 20:00 112 H 36 H 96/70 100 04/12/21 19:30 90 40 H 84/33 L 100 04/12/21 19:10 36.8 C 113 H 30 H 74/59 L - Physical Exam General Appearance: positive: Other (intubated and sedated) ENT: positive: Other (ET tube in place; NG in place with small amt coffee ground output) Respiratory: positive: Other (on vent) Cardiovascular: positive: Regular rate & rhythm, Tachycardia Abdomen: positive: Other (soft, distended, tympanitic, eval limited due to sedation) Skin: positive: Dry. negative: Warm Extremities: positive: No pedal edema Neurologic/Psychiatric: positive: Other (sedated) Sepsis Event Note (H) - Evaluation Current Stage of Sepsis: Septic shock Possible source of Sepsis: positive: GI tract/intra-abdominal - Sepsis Criteria Sepsis Criteria: Recorded Heart Rate greater than 90 bpm, Recorded Respiratory Rate greater than 20, WBC count greater than 10% bands, WBC count greater than 12,000 or less than 4000, MAP less than 65 mmHg, SBP less than 90 mmHg, Metabolic: lactate > 2 mmol/L Conclusion/Plan - Lab Results Lab results reviewed: Yes Fish Bones: 04/12/21 19:27 04/12/21 23:14 - Diagnostic Imaging Results Diagnostic Imaging Results: positive: Final report reviewed, See rad report - Other Other Results/Comments: Pt is a 65 yo M with the above hx who presented with SBO, mesenteric ischemia and perforated viscous. New evidence of metastatic disease to the brain. On my review of the CT scan, the SMA appears to run directly into the mesenteric mass likely causing diffuse mesenteric ischemia and subsequent perforation. Due to extent/location of disease and poor patient protoplasm this patient is an exceedingly poor surgical candidate with low likelihood of success with any surgical intervention. This was discussed with patient's sister who is his primary medical decision maker who expressed good understanding and agreed to not proceed with aggressive surgical intervention. The patient's sister and her mother were made aware of his deteriorating clinical status and are en route to the hospital to see him. Due to the complexity and severity of this case it was discussed with my senior surgical partners Drs. Braxton and Cristina. Edward Cheng MD General Surgery
[2021-04-13 01:38] LABS: ABG BASE EXCESS -9.8 mmol/L (-2.0-3.0); ABG HCO3 13.9 mmol/L (22.0-26.0); ABG OXYGEN SATURATION 98 % (94-98); ABG PH 7.37 (7.35-7.45); ABG PO2 129 mmHg (80-100); ABG TCO2 14.6 MMOL/L (21.0-29.0); ALLEN TEST POSITIVE
[2021-04-13] MEDS ORDERED: SODIUM CHLORIDE 0.9% 500 ML IV PRN (01:38)
[2021-04-13 01:39] LABS: ABG PCO2 24 mmHg (34-45)
[2021-04-13 01:40] LABS: ABG MODE OF VENTILATION ASSIST/CONTROL; ABG RESPIRATORY RATE 30 b/min
[2021-04-13 02:46] LABS: LACTIC ACID, VENOUS 5.8 mmol/L (0.5-2.2)
[2021-04-13] MEDS ORDERED: METOPROLOL 5 MG/5 ML VIAL IVP STA (04:46)
[2021-04-13 05:35] LABS: BASOPHILS % (AUTO) 0.3 %; EOSINOPHILS % (AUTO) 0.1 %; HCT - HEMATOCRIT 34.9 % (42.0-52.0); HGB - HEMOGLOBIN 11.2 g/dL (14.0-18.0); LYMPHOCYTES % (AUTO) 2.3 %; MEAN CORPUSCULAR HGB CONC 32.1 g/dL (32.0-36.0); NEUTROPHILS % (AUTO) 94.8 %; PLT - PLATELET COUNT 151 10^3/uL (130-450); RED BLOOD COUNT 4.31 10^6/uL (4.70-6.10); RED CELL DISTRIBUTION WIDTH 18.3 % (12.0-15.0); WHITE BLOOD COUNT 33.3 x10^3/uL (4.8-10.8)
[2021-04-13 05:41] LABS: ABNORMAL LYMPHS % (MANUAL) 0 %
[2021-04-13 05:51] LABS: ALBUMIN 1.6 g/dL (3.2-5.5); ALBUMIN/GLOBULIN RATIO 0.6 (1.0-2.2); BILIRUBIN,TOTAL 1.3 mg/dL (0.2-1.0); CALCIUM 7.2 mg/dL (8.5-10.3); CREATININE 2.2 mg/dL (0.6-1.2); MAGNESIUM 1.6 mg/dL (1.7-2.8); PHOSPHORUS 5.4 mg/dL (2.5-4.6); TOTAL PROTEIN 4.2 g/dL (6.7-8.2)
[2021-04-13 06:33] LABS: BAND NEUTROPHILS % (MANUAL) 62 %; DIFFERENTIAL COMMENT MANUAL DIFFERENTIAL; LYMPHOCYTES # (MANUAL) 0.7 10^3/uL (1.5-3.5); LYMPHOCYTES % (MANUAL) 2 %; METAMYELOCYTES % (MANUAL) 1 %; MONOCYTES # (MANUAL) 0.7 10^3/uL (0.0-1.0); MYELOCYTES % (MANUAL) 1 %; NEUTROPHILS # (MANUAL) 31.3 10^3/uL (1.5-6.6); PLATELET ESTIMATE, MANUAL NORMAL (130-450,000) (NORMAL); RBC MORPHOLOGY (MULTIPLE) NORMAL APPEARANCE (NORMAL)
[2021-04-13] MEDS ORDERED: MAGNESIUM SULFATE 2 GRAM 2 GM/50 ML BAG IV ONE (06:42)
[2021-04-13] MEDS ORDERED: PANTOPRAZOLE 40 MG VIAL IVP SCH (07:00)
[2021-04-13 08:20] VITALS: BP 70/56
[2021-04-13] MEDS ORDERED: CHLORHEXIDINE GLUCONATE 15 ML UDC PO SCH (09:00)
[2021-04-13] MEDS ORDERED: ethyl alcohoL 62% SWAB AMPULE NAS SCH (09:00)
[2021-04-13] MEDS ORDERED: SCOPOLAMINE PATCH TOP SCH (10:00)
--- NOTE | 2021-04-13 11:22 | Discharge Plan ---
Discharge Plan Problem Reviewed?: Yes Disposition: 20 No Smoking: If you smoke, Please STOP! Call for help. Follow-up with: Vic Keith MD [Primary Care Provider] -
--- NOTE | 2021-04-13 11:22 | DISCHARGE SUMMARY ---
Discharge Summary Admit Date: 04/12/21 Discharge Date: 04/13/21 Discharging Provider: Yesy Medellin Primary Care Provider: iVc Keith Code Status: Do Not Attempt Resuscitation Condition at Discharge: Critical Discharge Disposition: 20 - DIAGNOSES Admission Diagnoses: Septic shock Ischemic bowel disease Perforated bowel Acute kidney injury Brain mass Carcinoid tumor Discharge Diagnoses with Status of Each Condition: Septic shock: Patient Ischemic bowel disease: Patient Perforated bowel: Patient Acute kidney injury: Patient Brain mass: Patient Carcinoid tumor: Patient - HPI History of Present Illness: This is a 65-year-old white male who is single, and lives with his sister. 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 He is followed in the [facility] [place] by Dr. Palomino who just saw him on 04/10/2019 with plan for starting Lanreotide chemo monthly and needing IR evaluation of a neck mass. The patient also has had recurrent small bowel obstruction due to the small bowel primary tumor and he has been referred for outpatient surgical evaluation. He has carcinoid syndrome with elevated urine 5HIAA and recurrent diarrhea. He has chronic anemia, likely due to recurrent bleed and iron deficiency. He has undiagnosed psych problems, as he hears and sees "special agents or forces shining radiowaves on him causing abdominal pain and cancer", per Dr Palomino's note. He had been managing abdominal pain with Dilaudid, which was transitioned to oxycodone yesterday. Sister reported the patient was screaming in pain at home. His symptoms did not improve until he started taking 3 tablets of oxycodone every 4 hours. His sister found him sitting up in a chair but was unresponsive and 911 was called. At the scene, EMS noted that he was very tachypneic with low oxygen saturations and BP was 40 palp. They did give him 0.4 mg of Narcan which seemed to improve his mentation slightly. They were unable to obtain sats enroute, gave a liter of fluid and he presented to the ER cold and clammy with BP 70. He opened his eyes to painful stimuli only and did not follow commands. He was writhing in pain from the abdomen. He received more Narcan, iv fluids, and empiric iv Vanco and Cefepime and the sister was called to discuss management; he was then intubated and sent to CT for scanning. CT results are pending. He is COVID neg, his L.A. is >10, WBC 33 with 52% Bands. He is being admitted to the ICU in critical condition. Just prior to leaving the ER, the Radiologist called with critical lab results: He has a hyperdense mass in the right frontal lobe which could be infarct or a metastatic mass. He has small bowel obstruction with infarcted bowel and free air and free fluid in the peritoneum. - HOSPITAL COURSE Hospital Course: General surgery was consulted and after review of images determined that the patient was an exceedingly poor candidate for surgery with low likelihood of success due to the extent/location of disease. General surgery discussed this with the patient's sister and mother who agreed to no aggressive surgical int ervention. Patient was intubated upon arrival to the ED to enable further work-up to include imaging. He was then transferred to the ICU on pressors, sedation, IV antibiotics, IV fluids for hydration and IV bicarb. Upon presentation to bedside for rounding this morning patient's systolic blood pressure was in the 70s despite Levophed drip. He was tachycardic (120's) and tachypneic (30's). His extremities were cold to touch and appeared mottled. Labs showed lactic acid of 5.8 despite a bicarbonate drip, white blood cell count of 33 with 62 bands. I had another conversation with the patient's sister Miriam Shields expressing my concern that the patient was actively going to the stages of dying. I suspected that at best he would not last a day but likely will pass within a couple of hours. As a result I asked/advised about patient being made comfort care. I explained what comfort care would entail. Which would be stopping any treatments with goals for care and switching to keep him comfortable. His sister expressed understanding was agreeable to comfort measures. Consequently comfort measures were initiated. Shortly after initiating comfort measures it was brought to my attention that the patient was nonresponsive. Upon presentation to bedside he was non-responsive to tactile or verbal stimuli. There were no spontaneous breath or heart sounds. Heart and breath sounds were also absent upon auscultation. Pupils were fixed dilated and unreactive to light. Carotid and radial pulses were absent bilaterally. Patient was pronounced at 10:30 AM on 04/13/2021. His sister Miriam Shabazz was notified. - ALLERGIES Allergies/Adverse Reactions: Allergies Allergy/AdvReac Type Severity Reaction Status Date / Time No Known Drug Allergies Allergy Verified 04/06/21 23:03 - MEDICATIONS Home Medications: Ambulatory Orders Medication Instructions Recorded Confirmed HYDROcod/ACETAM 5/325 [Vicodin 1 - 2 ea PO Q6H PRN #15 tablet 10/10/12 03/06/21 5/325] Hyoscyamine Sulfate [Levsin-Sl] 0.125 mg SL Q6H PRN #30 tab 09/16/20 03/06/21 Hyoscyamine [Levsin] 0.125 mg SL Q6H PRN #20 tablet 01/24/21 03/06/21 Naproxen 250 mg PO BID 7 Days #30 tablet 01/24/21 03/06/21 HYDROmorphone [Dilaudid] 1 - 2 tab PO Q4H PRN #30 tablet 04/03/21 oxyCODONE [Roxicodone] 10 mg PO Q4H PRN #90 tablet 04/05/21 - LABS Result Diagrams: 04/13/21 04:27 04/13/21 04:27 - SEPSIS Current Stage of Sepsis: Septic shock Possible source of Sepsis: GI tract/intra-abdominal Sepsis Criteria: Recorded Heart Rate greater than 90 bpm, Recorded Respiratory Rate greater than 20, WBC count greater than 10% bands, WBC count greater than 12,000 or less than 4000, MAP less than 65 mmHg, SBP less than 90 mmHg, Metabolic: lactate > 2 mmol/L - TIME SPENT Time Spent in Discharge (Minutes): 20
== END 2021-04-13 10:30 | disposition expired | DRG 871 ==
LOC: EDUNIT# → EDBD → ED 18:57 → ICU 23:16
PROVIDERS: ADMIT Internal Medicine; ATTEND Internal Medicine
DX: A41.9 Sepsis, unspecified organism (principal); K56.609 Unspecified intestinal obstruction, unspecified as to partial versus complete obstruction; R65.21 Severe sepsis with septic shock; C18.9 Malignant neoplasm of colon, unspecified; C7A.8 Other malignant neuroendocrine tumors; C78.7 Secondary malignant neoplasm of liver and intrahepatic bile duct; C79.51 Secondary malignant neoplasm of bone; C77.2 Secondary and unspecified malignant neoplasm of intra-abdominal lymph nodes; C78.1 Secondary malignant neoplasm of mediastinum; Z20.822 Contact with and (suspected) exposure to COVID-19; K63.1 Perforation of intestine (nontraumatic); R40.4 Transient alteration of awareness; E87.2 Acidosis; K55.9 Vascular disorder of intestine, unspecified; N17.9 Acute kidney failure, unspecified; C7A.019 Malignant carcinoid tumor of the small intestine, unspecified portion; C7B.03 Secondary carcinoid tumors of bone; C7B.02 Secondary carcinoid tumors of liver; C7B.01 Secondary carcinoid tumors of distant lymph nodes; C7B.04 Secondary carcinoid tumors of peritoneum; E34.0 Carcinoid syndrome; C7B.09 Secondary carcinoid tumors of other sites; F31.9 Bipolar disorder, unspecified; D50.9 Iron deficiency anemia, unspecified; D50.0 Iron deficiency anemia secondary to blood loss (chronic); R44.1 Visual hallucinations; R41.82 Altered mental status, unspecified; R10.9 Unspecified abdominal pain; Z78.1 Physical restraint status
CPT/HCPCS: 31500; 36415; 36556; 36600; 70450; 71045; 71260; 72125; 74177; 80048; 80053; 80306; 81001; 82803; 83605; 83735; 84100; 84484; 85025; 85610; 86850; 86900; 86901; 87040; 87077; 87150; 87181; 87631; 93005; 94002; 94003; 96365; 96366; 96375; 99233; 99291; A9270; J3010; J3370; J3490; Q9967; 0202U; 87086; 94770